=== PATIENT | male | born 1935 | race Hispanic/Latino ===

== ENCOUNTER 2018-06-27 09:13 | Emergency (ER) | payer OTHER ==
[~2018-06-27 09:13] MED LIST: DIAZ10TA4 PO; METO-408 PO; WARF6TAB49 PO
== END 2018-06-27 10:34 | disposition home or self-care (01) ==
LOC: EDH 09:13
DX: M54.16 Radiculopathy, lumbar region (principal); R03.0 Elevated blood-pressure reading, without diagnosis of hypertension

== ENCOUNTER → 2025-04-13 | Outpatient (CLI) | payer OTHER, MEDICARE ==
--- NOTE | 2025-04-14 06:23 | HMCIMG ---
EXAMINATION: ULTRASOUND OF THE RETROPERITONEUM. CLINICAL HISTORY: Gross hematuria. COMPARISON: None. TECHNIQUE: Real-time grayscale ultrasound images of the kidneys. FINDINGS: The kidneys are normal in caliber, the right kidney measures 10.4 x 5.4 x 5.3 cm and the left kidney measures 10.9 x 5.8 x 4.7 cm in its craniocaudal, AP, and transverse dimensions respectively. There is normal renal cortical thickness, and increased cortical echogenicity. There is no renal calculus or hydronephrosis. The urinary bladder is normal in caliber and wall thickness (cm). There are no calculi in the urinary bladder. Pre-void volume is 172 cc and post-void volume is 154 cc. The prostate gland is bulky in caliber and measures 5.0 x 3.7 x 4.5 cm with volume of 44 cc. IMPRESSION: Increased echotexture of both the kidneys, of concern for renal parenchymal disease. Recommend clinical correlation and with laboratory parameters. Mild prostatic hypertrophy. /[place]
== END | disposition home or self-care (01) ==
LOC: RAH 09:12
PROVIDERS: ATTEND Family Medicine
DX: N40.1 Benign prostatic hyperplasia with lower urinary tract symptoms (principal); R31.0 Gross hematuria
CPT/HCPCS: 76770

== ENCOUNTER 2025-07-26 09:32 | Inpatient (IN) | payer OTHER, MEDICARE ==
[~2025-07-26] VITALS: Ht 165.1 cm; Wt 62.9 kg
[2025-07-26 10:00] LABS: IMMATURE GRANULOCYTE ABSOLUTE 0.00 K/uL (0-1); NUCLEATED RED BLOOD CELLS 0.0 % (0.0-0.19); PLATELET COUNT (AUTO) 181 K/uL (130-400); RED BLOOD CELL COUNT(AUTO) 3.96 MIL/uL (4.50-6.20); RED CELL DISTRIBUTION WIDTH 14.6 % (11.0-15.5); WHITE BLOOD COUNT (AUTO) 5.7 K/uL (4.8-10.8)
[2025-07-26 10:11] LABS: CREATININE 1.0 mg/dL (0.5-1.3); GLOMERULAR FILTR. RATE CALC 72.0 mL/min (>90); GLUCOSE,RANDOM 135.0 mg/dL (70-105); SODIUM SERUM 136.0 mmol/L (136-145); UREA NITROGEN, BLOOD 23.0 mg/dL (7-18)
--- NOTE | 2025-07-26 10:12 | ERN ---
General Chief Complaint: Dehydration Stated Complaint: DEHYDRATION Time Seen by MD: 09:34 Source: patient History of Present Illness Initial Comments Patient is a an 89-year-old male coming in with generalized body weakness. Per EMS and facility where patient is a patient has not been eating well and has been presenting with a generalized body weakness. Allergies: Coded Allergies: No Known Allergies (Unverified Allergy, 01/29/12) No Known Drug Allergies (Unverified Allergy, 12/11/13) Home Meds Reported Medications Metoprolol Succinate (Metoprolol Succinate) 25 Mg Tab.er.24h, 25 MG PO HS, TAB 10/31/16 Diazepam (Diazepam) 10 Mg Tablet, 10 MG PO as needed, TAB 10/31/16 Warfarin Sodium (Warfarin Sodium) 6 Mg Tablet, 6 MG PO HS, TAB 10/31/16 Past Medical History Past Medical History: Other Medical History Other: VERTIGO, CHRONIC BACK PAIN Past Surgical History: Other Surgical History Other: PROSTATE SX ROS Dictation CONSTITUTIONAL: No chills, no fever, weakness, no diaphoresis, no malaise. HEAD/FACE: No signs of trauma. EENT: No eye pain, no blurred vision, no tearing, no double vision, no ear pain, no ear discharge, no nose pain, no nasal congestion, no throat pain, no throat swelling, no mouth pain. RESPIRATORY: No cough, no orthopnea, no SOB, no stridor, no wheezing. CARDIOVASCULAR: No chest pain, no edema, no palpitations, no syncope. GASTROINTESTINAL/ABDOMINAL: No abdominal pain, no constipation, no diarrhea, no nausea, no vomiting. GENITOURINARY: No abnormal discharge, no dysuria, no frequent urination, no hematuria. No complaints of pain in the genitals. MUSCULOSKELETAL: No back pain, no gout, no joint pain, no joint swelling, no muscle pain, no muscle stiffness, no neck pain. INTEGUMENTARY: No change in color, no change in hair/nails, no dryness, no lesion, no lumps, no rash. NEUROLOGICAL/PSYCH: No anxiety, not depressed, no emotional problem, no headache, no numbness, no pre-existing deficit, no history of seizures, no tremors, no weakness. HEMATOLOGIC/LYMPHATIC: Not anemic, no history of blood clots, no apparent bleeding, no bruising, glands not swollen. All Systems Negative, Except as Noted. Physical Exam Physical Exam Dictation VITAL SIGNS: Reviewed. GENERAL APPEARANCE: Alert, oriented x3, no acute distress, obese. HEAD AND FACE: Non-traumatic. EYES: PERRL, pink conjunctivas, eyelid no trauma, anterior chamber clear. EARS: Pinnas intact and no signs of trauma or erythema. Ear canals clear and no discharge. TMs no erythema. NOSE: No discharge, no bleeding. OROPHARYNX: Mouth normal, teeth no caries, tongue pink. Pharynx clear, no erythema. Tonsils no exudates, no abscesses noted. Mucous membrane moist. NECK: Supple, non-tender, no thyromegaly, no masses, no JVD, no bruits. BREAST: Deferred. CHEST: No tenderness, no crepitus, no paradoxical movement, no retractions. LUNGS: Clear, well-ventilated, symmetric, no rales, no wheezing, no rhonchi, no stridor, good breath sounds bilaterally. HEART: Regular rate, regular rhythm, no murmur, no gallops. VASCULAR: No peripheral edema. ABDOMEN: Soft, positive bowel sounds, nondistended, no guarding, nontender, no rebound, no masses no hepatomegaly, no splenomegaly, no Sabillon's sign, no hernias. RECTAL: Deferred. GENITAL: Deferred. NEUROLOGICAL: Normal speech, gross motor function intact, gross sensory function intact. MUSCULOSKELETAL: Neck nontender, full range of motion, back nontender, full range of motion. EXTREMITIES: Nontender, full range of motion. SKIN: Color pink, dry, no turgor, no rash, no lacerations, no abrasions, no contusions. LYMPHATICS: Deferred. Results Laboratory and Microbiology Lab and Micro Result Laboratory Tests Test 07/26/25 09:57 07/26/25 11:20 White Blood Count 5.7 K/uL (4.8-10.8) Red Blood Count 3.96 MIL/uL (4.50-6.20) L Hemoglobin 11.6 g/dL (14.0-18.0) L Hematocrit 34.0 % (42-54) L Mean Corpuscular Volume 85.9 fL (79-99) Mean Corpuscular Hemoglobin 29.3 pg (27.0-33.0) Mean Corpuscular Hemoglobin Concent 34.1 g/dL (32.0-36.0) Red Cell Distribution Width 14.6 % (11.0-15.5) Platelet Count 181 K/uL (130-400) Mean Platelet Volume 10.3 fL (7.5-10.5) Immature Granulocyte % (Auto) 0.0 % (0-1) Neutrophils (%) (Auto) 61.6 % (40.0-77.0) Lymphocytes (%) (Auto) 24.9 % (21.0-51.0) Monocytes (%) (Auto) 11.7 % (3.0-13.0) Eosinophils (%) (Auto) 1.4 % (0.0-8.0) Basophils (%) (Auto) 0.4 % (0.0-5.0) Neutrophils # (Auto) 3.5 K/uL (1.8-7.7) Lymphocytes # (Auto) 1.4 K/uL (1.0-4.8) Monocytes # (Auto) 0.7 K/uL (0.1-1.0) Eosinophils # (Auto) 0.08 K/uL (0.00-0.70) Basophils # (Auto) 0.02 K/uL (0.00-0.20) Absolute Immature Granulocyte (auto 0.00 K/uL (0-1) Nucleated Red Blood Cells 0.0 % (0.0-0.19) Activated Partial Thromboplast Time 33.3 SEC (26.3-35.5) Sodium Level 136 mmol/L (136-145) Potassium Level 3.7 mmol/L (3.5-5.1) Chloride Level 101 mmol/L (101-111) Carbon Dioxide Level 29 mmol/L (21-32) Blood Urea Nitrogen 23 mg/dL (7-18) H Creatinine 1.0 mg/dL (0.5-1.3) Glomerular Filtration Rate Calc 72 mL/min (>90) Random Glucose 135 mg/dL (70-105) H Total Calcium 8.6 mg/dL (8.5-10.1) Magnesium Level 1.90 mg/dL (1.80-2.40) Troponin I High Sensitivity 12 ng/L (4-75) Urine Color LIGHT-YELLOW (YELLOW) Urine Appearance CLEAR (CLEAR) Urine pH 6.0 (5.0-8.0) Urine Specific [place] 1.012 (1.001-1.031) Urine Protein NEGATIVE mg/dL (NEGATIVE) Urine Glucose (UA) NEGATIVE mg/dL (NEGATIVE) Urine Ketones NEGATIVE mg/dL (NEGATIVE) Urine Occult Blood NEGATIVE (NEGATIVE) Urine Nitrate NEGATIVE (NEGATIVE) Urine Bilirubin NEGATIVE mg/dL (NEGATIVE) Urine Urobilinogen 0.2 mg/dL (0.2-1.0) Urine Leukocyte Esterase NEGATIVE Ady/uL Labs Reviewed?: Yes EKG/XRAY/US/CT/MRI EKG Comment 07/26/2025 TIME 10:13 A.M. VENTRICULAR RATE 60 SINUS RHYTHM IN [address] WAVE ELEVATION OR DEPRESSION MDM MDM: Differential diagnosis: FAILURE TO THRIVE, DECREASED APPETITE, CHRONIC BACK PAIN, Rationale: Tests considered and ordered secondary to shared decision making include: Previous outside records reviewed: Old ER visits. Risk of complication and/or morbidity or mortality of patient management: None Medications-Per medication reconciliation Need for hospitalization: Patient does not meet criteria for hospitalization. Need for emergency major/minor surgery: No There are no social concerns with this patient. Prescription drug management Prescriptions will include symptomatic care Patient's prior external medical records from other ER visits were reviewed by me as indicated. Prior testing and results from previous visits were reviewed. Prior tests were taken into account with medical decision making and resource utilization, independent historian/historians were used to obtain complete medical history. I independently interpreted the test that were performed, results were reviewed by me and considered findings on radiology if ordered. Medical management and examination interpretation discussions were had by me with other qualified healthcare professionals as indicated for the patient's care. PATIENT WILL BE ADMITTED UNDER THE CARE OF [facility] FOR ONGOING MANAGEMENT. ED Course Orders Procedure Category Date Status Time Cbc With Differential LAB 07/26/25 Complete 09:49 Chest 1vw RAD 07/26/25 Resulted 09:49 12 Lead Ekg Tracing- EKG 07/26/25 Resulted Technical 09:49 Magnesium LAB 07/26/25 Complete 09:49 Troponin I High LAB 07/26/25 Complete Sensitivity 09:49 Urinalysis Profile LAB 07/26/25 Complete 09:49 Partial LAB 07/26/25 Complete Thromboplastin Time 09:49 Basic Metabolic Panel LAB 07/26/25 Complete 09:49 0.9%Nacl 1000ml (Ns PHA 07/26/25 Complete 1000ml) 12:30 Current Medications Medications (Trade) Dose Ordered Sig/Aj Route PRN Reason Start Time Stop Time Status Last Admin Dose Admin Sodium Chloride 1,000 ml @ 0 mls/hr ONCE ONCE IV 07/26/25 12:30 07/26/25 12:31 DC 07/26/25 12:25 Vital Signs Date Time Temp Pulse Resp B/P (MAP) Pulse Ox O2 Delivery O2 Flow Rate FiO2 07/26/25 10:41 97.9 62 14 151/68 97 Room Air* 0 21 07/26/25 09:46 98.2 70 16 135/69 98 Room Air 0 DX & DISP Disposition: Inpatient Decision to Admit Time: 13:09 Departure Impression: Primary Impression: Failure to thrive Additional Impressions: Decreased appetite, Chronic back pain Condition: Stable Referrals: ADI GONZALES MD (PCP) SANTOSH BETTENCOURT MD Jul 26, 2025 10:12
--- NOTE | 2025-07-26 10:21 | EKG ---
[facility] Test Date: 2025-07-26 Test Time: 10:13:38 Pat Name: SAMIR ABDULLAHI Department: ED Room: Gender: M [employer]: [facility] : 1935 Requested By: SANTOSH BETTENCOURT Order Number: [id number] Reading MD: Tata Manrique Measurements Intervals [place] Rate: 60 P: -5 HI: 296 QRS: -66 QRSD: 129 T: 75 QT: 430 QTc: 430 Interpretive Statements Sinus rhythm Prolonged HI interval Nonspecific IVCD with LAD Left ventricular hypertrophy ST elevation, consider inferior injury No previous ECG available for comparison Electronically Signed On 07-26-2025 12:10:57 CDT by Tata Manrique Please click the below link to view image of tracing.
--- NOTE | 2025-07-26 11:25 | HMCIMG ---
EXAM: CR Chest, 1 View. CLINICAL HISTORY: weakness COMPARISON: None provided. FINDINGS: LUNGS: There is no mass, infiltrate, or acute pulmonary abnormality. PLEURAL SPACES: No pleural effusion or pneumothorax. MEDIASTINUM: Cardiac size and mediastinal contours within normal limits. BONES: No aggressive appearing osseous lesion seen. IMPRESSION: No acute cardiopulmonary pathology is evident. /[place]
[2025-07-26 11:38] LABS: APPEARANCE,URINE CLEAR (CLEAR); GLUCOSE, URINE (UA) NEGATIVE (NEGATIVE); LEUKOCYTE ESTERASE ,URINE NEGATIVE Leu/uL (NEGATIVE); NITRATE,URINE NEGATIVE (NEGATIVE); OCCULT BLOOD,URINE NEGATIVE (NEGATIVE)
[2025-07-26 11:39] LABS: ADD UA MICROSCOPIC NO
[2025-07-26] MEDS: 0.9%NACL 1000ML 1,000 ML IV ONE (12:25)
[2025-07-26] MEDS: LACTATED RINGERS 1000ML 1,000 ML IV SCH (13:43)
[2025-07-26] MEDS ORDERED: RIVA20TA PO (15:11)
[2025-07-26] MEDS ORDERED: TAMS-55 PO (15:11)
[2025-07-26 15:49] LABS: COVID19 (SARS ANTIGEN RAPID) PRESUMPTIVE NEGATIVE (NEGATIVE); INFLUENZA TYPE A Negative For Type A (NEGATIVE); INFLUENZA TYPE B Negative For Type B (NEGATIVE)
--- NOTE | 2025-07-26 16:22 | HP ---
[facility] HISTORY & PHYSICAL Date Patient Seen: Jul 26, 2025 Time of Visit: 16:20 Supervising Physician: Dr. Moulton Primary Care Physician: Dr. Scott Lu Outpatient Specialists: [ ] Inpatient Consults: [ ] PROBLEM LIST: Adult Failure to Thrive BPH Lumbar pain Hypertension Suspected carotid stenosis, on xarelto (on hold, on lovenox) HPI: Patient is an 89-year-old male who arrived to the ED via EMS from a SNF facility where he is a long-term resident. He has a past medical history significant for BPH, hypertension, presenting today after his SNF facility as stated he has not been eating well. On admission patient appears to be severely dehydrated, he has been started on fluid resuscitation. Patient is cachectic, but pleasant, willing to participate and physical exam and evaluation. Daughter and son at bedside. Patient appears not to think that he has not been eating enough, however he that he has very little appetite. He states that he feels hungry in his belly however he has no desire to consume food. Patient endorses prostate problems for which he takes tamsulosin, as well as lumbar pain. He states his lumbar pain is chronic, denies any recent falls or possibilities of fracture. Given the patient's slight abdominal distention and possibility of silent compression fracture we will order CT abdomen. Per son at bedside narcotic analgesia makes the patient extremely somnolent and obtunded. Patient's renal function will be monitored and we will initiate ketorolac for pain relief at this time. Hydralazine 25 PRN q.6 hours added for hypertension. Advised patient we will continue with fluid resuscitation overnight and re-evaluate labs in the morning. Patient states he is willing to cooperate to try to correct his recent decrease in appetite. Patient will be started on a regular diet. Bria marcelino pending a room on the med floor. Plan Continue IV fluid hydration Pending CT abdomen for evaluation of abdominal distention as well as lumbar pain Hydralazine 25 PRN q.6 hours for hypertension above 160 Patient initiated on Lovenox, hold Xarelto until procedures are ruled out Ketorolac 15 PRN q.6 hours for pain Monitor patient's oral food intake PAST MEDICAL HX: see above PAST SURGICAL HX: noncontributory SOCIAL HISTORY: No tobacco, ETOH, or illicit drug use Coded Allergies: No Known Allergies (Unverified Allergy, 01/29/12) No Known Drug Allergies (Unverified Allergy, 12/11/13) REVIEW OF SYSTEMS: 12 point ROS reviewed with patient. Pertinent positives mentioned above. Otherwise negative. PHYSICAL EXAM: GENERAL: alert, weak, awake oriented x 3 HEENT: EOMI, Sclera non icteric, moist mucosa NECK: Supple, no JVD, trachea midline LUNGS: Clear breath sounds bilaterally. No wheezes HEART: Regular rate and rhythm. Normal S1 and S2, without murmurs ABD: Abdomen soft, nontender. Bowel sounds present EXT: No clubbing cyanosis or edema NEURO: Alert and oriented to person, follows commands Vital Signs (last 8hr) Date Time Temp Pulse Resp B/P (MAP) Pulse Ox O2 Delivery O2 Flow Rate FiO2 07/26/25 16:13 97.9 71 19 176/77 99 Room Air* 0 21 07/26/25 13:37 97.5 58 12 163/63 99 Room Air* 0 21 07/26/25 10:41 97.9 62 14 151/68 97 Room Air* 0 21 07/26/25 09:46 98.2 70 16 135/69 98 Room Air 0 LABS: Hematology Labs: Test 07/26/25 09:57 Range/Units White Blood Count 5.7 4.8-10.8 K/uL Red Blood Count 3.96 L 4.50-6.20 MIL/uL Hemoglobin 11.6 L 14.0-18.0 g/dL Hematocrit 34.0 L 42-54 % Mean Corpuscular Volume 85.9 79-99 fL Mean Corpuscular Hemoglobin 29.3 27.0-33.0 pg Mean Corpuscular Hemoglobin Concent 34.1 32.0-36.0 g/dL Red Cell Distribution Width 14.6 11.0-15.5 % Platelet Count 181 130-400 K/uL Mean Platelet Volume 10.3 7.5-10.5 fL Immature Granulocyte % (Auto) 0.0 0-1 % Neutrophils (%) (Auto) 61.6 40.0-77.0 % Lymphocytes (%) (Auto) 24.9 21.0-51.0 % Monocytes (%) (Auto) 11.7 3.0-13.0 % Eosinophils (%) (Auto) 1.4 0.0-8.0 % Basophils (%) (Auto) 0.4 0.0-5.0 % Neutrophils # (Auto) 3.5 1.8-7.7 K/uL Lymphocytes # (Auto) 1.4 1.0-4.8 K/uL Monocytes # (Auto) 0.7 0.1-1.0 K/uL Eosinophils # (Auto) 0.08 0.00-0.70 K/uL Basophils # (Auto) 0.02 0.00-0.20 K/uL Absolute Immature Granulocyte (auto 0.00 0-1 K/uL Nucleated Red Blood Cells 0.0 0.0-0.19 % Chemistry Labs: Test 07/26/25 09:57 Range/Units Sodium Level 136 136-145 mmol/L Potassium Level 3.7 3.5-5.1 mmol/L Chloride Level 101 101-111 mmol/L Carbon Dioxide Level 29 21-32 mmol/L Blood Urea Nitrogen 23 H 7-18 mg/dL Creatinine 1.0 0.5-1.3 mg/dL Glomerular Filtration Rate Calc 72 >90 mL/min Random Glucose 135 H 70-105 mg/dL Total Calcium 8.6 8.5-10.1 mg/dL Magnesium Level 1.90 1.80-2.40 mg/dL Troponin I High Sensitivity 12 4-75 ng/L Coagulation Labs: Test 07/26/25 09:57 Range/Units Activated Partial Thromboplast Time 33.3 26.3-35.5 SEC DIAGNOSTICS / RADIOLOGY RESULTS: [ ] PLAN NEURO: Minimize central acting medications as possible. Maintain fall precautions, adequate lighting during the day PULMONARY: Supplemental 02 as needed. Maintain aspiration precautions at all times CARDIOVASCULAR: Follow hemodynamics. Vital signs per facility protocol GI & NUTRITION: Continue with nutritional support. Continue stool softeners and laxatives as needed. KIDNEYS & ELECTROLYTES: Strict monitoring of intake, output and overall fluid balance. Avoid nephrotoxic medications to the extent possible. Medications to be dosed according to renal function. Monitor electrolytes and replace as needed ENDOCRINE: Maintain blood glucose between 100-180 at all times. Hypoglycemia protocol in place INFECTIOUS DISEASE: Trend temperature, WBC and procalcitonin level Follow cultures, deescalate antibiotics as soon as possible. Panculture if new onset fever ONCOLOGY/HEMATOLOGY/COAGULATION: Monitor for s/s of bleeding Monitor hemoglobin, coagulation studies as needed SKIN: Pressure ulcer prevention per facility protocol Specialty mattress ORTHO/REHAB: Continue PT/OT Prophylaxis: Continue GI and DVT prophylaxis Code Status: Full Resuscitation Disposition: TBD Other: Total patient care time exceeds 35 minutes excluding all procedures. SCOTT ANSARI PAC Jul 26, 2025 16:22
--- NOTE | 2025-07-26 17:12 | NUR ---
DCP: HOME Sw met with pt and his son Bakari Son [phone]. P lives at home alone, is independent of all his ADLS and home management reports son. Pt has a Walker with seat and shower chair. No HH or HD services. PCP is Rodolfo Lu and uses [facility] needs. Son states pt will dc home Addendum: 07/26/25 at 1714 by ADAMARIS DE PAZ Amended: Links added.
--- NOTE | 2025-07-26 21:40 | NUR ---
REPORT GIVEN TO NURSE CRNESHAW
[2025-07-27] VITALS (7 sets, daily range): BP systolic 134–164; BP diastolic 64–90; PULSE 70–84; RESP 14–18; TEMP 97.7–98.8; O2SAT 97
[2025-07-27 06:11] LABS: IMMATURE GRANULOCYTE ABSOLUTE 0.01 K/uL (0-1); NUCLEATED RED BLOOD CELLS 0.0 % (0.0-0.19); PLATELET COUNT (AUTO) 191 K/uL (130-400); RED BLOOD CELL COUNT(AUTO) 3.90 MIL/uL (4.50-6.20); RED CELL DISTRIBUTION WIDTH 14.4 % (11.0-15.5); WHITE BLOOD COUNT (AUTO) 5.9 K/uL (4.8-10.8)
[2025-07-27 06:44] LABS: ASPARTATE AMINOTRANSFERASE 19.0 U/L (10-37); CREATININE 0.8 mg/dL (0.5-1.3); GLOMERULAR FILTR. RATE CALC 85.0 mL/min (>90); GLUCOSE,RANDOM 104.0 mg/dL (70-105); SODIUM SERUM 140.0 mmol/L (136-145); TOTAL PROTEIN, SERUM 6.1 g/dL (6.0-8.3); UREA NITROGEN, BLOOD 16.0 mg/dL (7-18)
[2025-07-27] MEDS: ENOXAPARIN SODIUM 40 MG/0.4 ML SYRINGE SQ SCH (08:06)
--- NOTE | 2025-07-27 11:49 | NUR ---
Nutritional Note: Chart, meds, and labs Reviewed. Pt reported that he feels hungry in his belly however he has no desire to consume food. Met with pt and son at bedside. Pt denied any problems chewing/swallowing. States that he wants to eat but loses interest because of pain in his shoulder and back. Pt reported UBW 178# and wt loss in the last 5-6months due to decreased intake. RD discussed with pt the importance of proper nutrition, increasing PO intake, and supplementing with PO supplement and if PO intake was not meeting needs the alternative wound be possible PEG placement to meet needs. Pt agreed to appetite stimulant and supplementing meals with [place] PO supplement. Recommend: -Appropriate Appetite stimulant -Nephrovite MVI combination of B vitamins may be used to treat or prevent vitamin deficiency due to poor diet. -Magic Cup 4oz w/ PM tray: Provides 9gm pro/ 290kcal and 20 vitamins and minerals. [place] to serve with meals as a means of adding calories and protein for unintended weight loss. -ProStat BID (30 ml) JELLO - Electrolyte replacements per protocol -Monitor feeding tolerance, %, wt, and labs -Document PO intake and wt daily. -If No BM >3days consider bowel stimulant. -Consider appetite stimulant if intake remains <75%for 3 days. -Schedule outpatient RD f/u for long-term nutrition care. - Notify RD if additional nutrition concerns arise. SEE RD Nutritional Assessment for additional assessment information. Addendum: 07/27/25 at [address] Amended: Links added.
[2025-07-27] MEDS: LIDOCAINE 4% ADH..PATCH TP SCH (11:54)
--- NOTE | 2025-07-27 14:01 | PN ---
[facility] PROGRESS NOTE Date Patient Seen: Jul 27, 2025 Time of Visit: 11:00 Supervising Physician: Dr. Tyler Moulton Primary Care Physician: Dr. Scott Lu Inpatient Consults: NA PROBLEM LIST: Acute intractable pain to left hip area Anorexia due to intractable pain Acute dehydration on admission Adult Failure to Thrive Unintentional weight loss BPH Lumbar pain Hypertension Suspected carotid stenosis, on xarelto (on hold, on lovenox) INTERVAL HISTORY: Patient evaluated at bedside today. Son at bedside. Patient is awake, alert, and oriented. At this time he states he has some pain to the lower left side of his back from 0-10 his pain is at a 3. He states he has had this pain for a long time but more severe within this month. He was seeing pain management Dr. Prieto for his pain. His son believes it is sciatic pain. He states his pain is so bad that he can not even eat. At home he was taking Hydrocodone which was prescribed by his PCP Scott Lu. He says that medication does help. He also take Tylenol as needed. Today orders placed for CT abdomen / pelvis due to his decrease in appetite states he feels tingling in his abdomen when the pain to his back starts and CT thoracic lumbar to make sure there is no fractures or abnormal findings. Will also order a lidocaine patch to help with pain. Bedside nurse reports patient has decreased appetite and case management would like to have a swallow study done. Denies any swallowing issues. States he is hungry right now. After evaluating and assessing patient no swallow study is needed. Denies any chest pain, abdominal pain, nausea or vomiting. REVIEW OF SYSTEMS: 12 point ROS reviewed with patient. Pertinent positives mentioned above. Otherwise negative. PHYSICAL EXAM: GENERAL: alert, weak, awake oriented x 3 HEENT: EOMI, Sclera non icteric, moist mucosa NECK: Supple, no JVD, trachea midline LUNGS: Clear breath sounds bilaterally. No wheezes HEART: Regular rate and rhythm. Normal S1 and S2, without murmurs ABD: Abdomen soft, nontender. Bowel sounds present EXT: No clubbing cyanosis or edema NEURO: Alert and oriented to person, follows commands Vital Signs (last 8hr) Date Time Temp Pulse Resp B/P (MAP) Pulse Ox O2 Delivery O2 Flow Rate FiO2 07/27/25 12:00 98.8 83 18 149/83 97 Room Air 07/27/25 09:00 Room Air* 0 21 07/27/25 08:00 98.2 70 18 134/64 98 Room Air LABS: Hematology Labs: Test 07/27/25 05:40 Range/Units White Blood Count 5.9 4.8-10.8 K/uL Red Blood Count 3.90 L 4.50-6.20 MIL/uL Hemoglobin 11.3 L 14.0-18.0 g/dL Hematocrit 32.8 L 42-54 % Mean Corpuscular Volume 84.1 79-99 fL Mean Corpuscular Hemoglobin 29.0 27.0-33.0 pg Mean Corpuscular Hemoglobin Concent 34.5 32.0-36.0 g/dL Red Cell Distribution Width 14.4 11.0-15.5 % Platelet Count 191 130-400 K/uL Mean Platelet Volume 11.3 H 7.5-10.5 fL Immature Granulocyte % (Auto) 0.2 0-1 % Neutrophils (%) (Auto) 60.9 40.0-77.0 % Lymphocytes (%) (Auto) 25.5 21.0-51.0 % Monocytes (%) (Auto) 11.3 3.0-13.0 % Eosinophils (%) (Auto) 1.9 0.0-8.0 % Basophils (%) (Auto) 0.2 0.0-5.0 % Neutrophils # (Auto) 3.6 1.8-7.7 K/uL Lymphocytes # (Auto) 1.5 1.0-4.8 K/uL Monocytes # (Auto) 0.7 0.1-1.0 K/uL Eosinophils # (Auto) 0.11 0.00-0.70 K/uL Basophils # (Auto) 0.01 0.00-0.20 K/uL Absolute Immature Granulocyte (auto 0.01 0-1 K/uL Nucleated Red Blood Cells 0.0 0.0-0.19 % Chemistry Labs: Test 07/27/25 05:40 07/26/25 09:57 Range/Units Sodium Level 140 136-145 mmol/L Potassium Level 3.8 3.5-5.1 mmol/L Chloride Level 105 101-111 mmol/L Carbon Dioxide Level 22 21-32 mmol/L Blood Urea Nitrogen 16 7-18 mg/dL Creatinine 0.8 0.5-1.3 mg/dL Glomerular Filtration Rate Calc 85 >90 mL/min Random Glucose 104 70-105 mg/dL Uric Acid 5.3 2.6-7.2 mg/dL Total Calcium 8.6 8.5-10.1 mg/dL Magnesium Level 1.90 1.80-2.40 mg/dL Total Bilirubin 0.8 0.2-1.0 mg/dL Aspartate Amino Transf (AST/SGOT) 19 10-37 U/L Alanine Aminotransferase (ALT/SGPT) 16 12-78 U/L Alkaline Phosphatase 82 50-136 U/L Total Protein 6.1 6.0-8.3 g/dL Albumin 3.1 L 3.5-5.0 g/dL Troponin I High Sensitivity 12 4-75 ng/L Coagulation Labs: Test 07/26/25 09:57 Range/Units Activated Partial Thromboplast Time 33.3 26.3-35.5 SEC DIAGNOSTICS / RADIOLOGY RESULTS:n/a n/a PLAN Continue with IV fluids Pending CT Abdomen / Pelvis Pending CT Thoracic Lumbar Continue with pain control Continue to monitor oral food intake NEURO: Minimize central acting medications as possible. Maintain fall precautions, adequate lighting during the day PULMONARY: Supplemental 02 as needed. Maintain aspiration precautions at all times CARDIOVASCULAR: Follow hemodynamics. Vital signs per facility protocol GI & NUTRITION: Continue with nutritional support. Continue stool softeners and laxatives as needed. KIDNEYS & ELECTROLYTES: Strict monitoring of intake, output and overall fluid balance. Avoid nephrotoxic medications to the extent possible. Medications to be dosed according to renal function. Monitor electrolytes and replace as needed ENDOCRINE: Maintain blood glucose between 100-180 at all times. Hypoglycemia protocol in place INFECTIOUS DISEASE: Trend temperature, WBC and procalcitonin level Follow cultures, deescalate antibiotics as soon as possible. Panculture if new onset fever ONCOLOGY/HEMATOLOGY/COAGULATION: Monitor for s/s of bleeding Monitor hemoglobin, coagulation studies as needed SKIN: Pressure ulcer prevention per facility protocol Specialty mattress ORTHO/REHAB: Continue PT/OT Prophylaxis: Continue GI and DVT prophylaxis Code Status: Full Resuscitation Disposition: OSMINTAMARA GOMEZ Y [employer] Jul 27, 2025 14:01
--- NOTE | 2025-07-27 14:22 | HMCIMG ---
CT ABDOMEN AND PELVIS WITHOUT IV CONTRAST CLINICAL HISTORY: Abdominal distention, lumbar pain TECHNIQUE: Axial computed tomography images of the abdomen and pelvis obtained without intravenous contrast. CONTRAST: None. COMPARISON: None provided. FINDINGS: LUNG BASES: Mild bilateral pleural effusions with associated bibasilar atelectasis. Trace pericardial effusion noted. LIVER: A hypodense area measuring approximately 1.5 cm is seen in the right hepatic lobe???indeterminate in noncontrast study. Recommend follow-up ultrasound or contrast-enhanced CT/MRI for further characterization. Tiny calcified hepatic focus also noted. GALLBLADDER AND BILIARY TREE: Gallbladder appears normal. No radiopaque calculi or biliary ductal dilatation. PANCREAS: Atrophic. No peripancreatic inflammation or collection. SPLEEN: Unremarkable. ADRENAL GLANDS: Unremarkable. KIDNEYS, URETERS, AND BLADDER: Bilateral renal cortical atrophy with diffuse perinephric fatty stranding, suggestive of chronic medical renal disease. No hydronephrosis or urinary calculi. Urinary bladder appears within normal limits. STOMACH AND BOWEL: Multiple colonic diverticulosis noted, some calcified, without evidence of diverticulitis. No bowel obstruction or wall thickening. APPENDIX: Normal. No CT evidence of appendicitis. PERITONEUM: No free air or free fluid. LYMPH NODES: No lymphadenopathy. REPRODUCTIVE ORGANS: Prostate gland is enlarged, measuring approximately 4.0 x 4.9 x 4.6 cm (volume ? 47 mL), with a small calcification. Median lobe projects into the bladder base by approximately 1.1 cm. Seminal vesicles unremarkable. VASCULATURE: Calcified atherosclerotic changes involving the intra-abdominal aorta, abdominal branches, and bilateral iliac and pelvic vessels. No aneurysm.Small fat-containing left inguinal hernia. BONES: Degenerative changes of the lumbar spine with mild scoliosis, multilevel disc space narrowing, and vacuum phenomenon. No acute osseous abnormality. IMPRESSION: Hypodense lesion (1.5 cm) in the right hepatic lobe ??? indeterminate; recommend ultrasound or contrast-enhanced imaging for further evaluation. Bilateral renal cortical atrophy with perinephric fat stranding ??? consistent with chronic medical renal disease. Prostatic enlargement (volume 47 mL) with median lobe indentation on bladder base. /[place]
--- NOTE | 2025-07-27 20:19 | HMCIMG ---
EXAM: COMPUTED TOMOGRAPHY OF THE THORACIC SPINE WITHOUT INTRAVENOUS CONTRAST Technique: Axial computed tomography of the thoracic spine was performed without intravenous contrast with sagittal and coronal reformations. Radiation dose reduction techniques were utilized (automatic exposure control with size-based milliampere and kilovolt adjustments and iterative reconstruction). Study limited by the absence of intravenous contrast, which reduces sensitivity for enhancement-dependent pathology, and by intrinsic limitations of computed tomography for detailed evaluation of the spinal cord and nerve roots compared with magnetic resonance imaging. Contrast: No intravenous contrast administered. Clinical Information: Back pain. Findings: Alignment: Normal thoracic vertebral alignment without anterolisthesis or retrolisthesis. Vertebral bodies: Diffuse osteopenic appearance. Subchondral cystic changes are present involving the T6, T7, T8, and T10 vertebral bodies. No acute compression fracture identified. Intervertebral discs: Multilevel disc height reduction throughout the thoracic spine. Endplates and osteophytes: Multilevel endplate osteophytic spurring consistent with spondylosis. Facet joints: Multilevel facet joint arthropathy. Spinal canal and neural foramina: No high-grade osseous canal stenosis is apparent on computed tomography; evaluation for soft tissue encroachment is limited on noncontrast computed tomography. Paraspinal soft tissues: No paraspinal fluid collection or mass detected. Vasculature: Moderate aortic atherosclerotic calcifications noted along the visualized thoracic aorta. Ribs and chest wall: No acute osseous abnormality identified within the imaged thorax. Impression: 1. Multilevel thoracic spondylosis characterized by disc height loss, endplate osteophytes, and multilevel facet arthropathy. 2. Osteopenic bones with subchondral cystic changes at T6, T7, T8, and T10. 3. Moderate aortic atherosclerotic calcifications. 4. Recommendation: Correlate the multilevel degenerative changes with the clinical level of pain. If there are radicular symptoms, myelopathy signs, or persistent pain disproportionate to radiographic findings, obtain magnetic resonance imaging of the thoracic spine without and with intravenous contrast for evaluation of the spinal cord, nerve roots, and soft tissues. Consider bone mineral density testing in the setting of osteopenia and institute bone health optimization per guidelines. /[place]
--- NOTE | 2025-07-27 20:52 | HMCIMG ---
EXAM: COMPUTED TOMOGRAPHY OF THE LUMBAR SPINE WITHOUT INTRAVENOUS CONTRAST Technique: Axial computed tomography of the lumbar spine was performed without intravenous contrast with sagittal and coronal reformations. Dose reduction techniques were applied according to ???as low as reasonably achievable??? principles. Study sensitivity is limited for evaluation of intervertebral discs, ligaments, and nerve roots compared with magnetic resonance imaging. Contrast: No intravenous contrast administered. Clinical Information: Back pain. Comparison: None. Findings: Vertebral bodies: Lumbar vertebral body heights from L1 through S1 are maintained without fracture or destructive lytic or sclerotic lesion. Multilevel anterior and marginal osteophytes are present. Mild scoliosis is noted. Posterior elements: Facets, laminae, and pedicles are intact without acute osseous abnormality. Paraspinal musculature: Psoas and erector spinae muscles are normal in bulk and attenuation. Sacroiliac joints: Joint space narrowing compatible with degenerative change. Aorta: Aortic atherosclerotic calcifications are present in the visualized segments. Colon (limited views): Prominent stool burden compatible with constipation on the imaged portions. Syjeq-iw-[id number] assessment: L1???L2: Disc height reduction with intradiscal vacuum phenomenon. Diffuse circumferential disc bulge with severe bilateral neural foraminal stenosis. No osseous central canal stenosis. Facet arthropathy present. L2???L3: Diffuse circumferential disc bulge with severe bilateral neural foraminal stenosis. Mild central canal stenosis. Facet joint hypertrophy present. L3???L4: Disc height reduction with diffuse circumferential disc bulge producing severe bilateral neural foraminal stenosis. No osseous central canal stenosis. Facet arthropathy present. L4???L5: Disc height reduction with intradiscal vacuum phenomenon and diffuse circumferential disc bulge causing severe bilateral neural foraminal stenosis. No osseous central canal stenosis. Facet arthropathy present. L5???S1: No focal disc herniation. No central canal stenosis or neural foraminal stenosis. Facet arthropathy present. Impression: 1. Multilevel lumbar spondylosis with diffuse disc bulges and facet arthropathy causing severe bilateral neural foraminal stenosis at L1???L2, L2???L3, L3???L4, and L4???L5; mild central canal stenosis at L2???L3. 2. Intradiscal vacuum phenomena at L1???L2 and L4???L5, consistent with advanced disc degeneration. 3. Degenerative sacroiliitis with sacroiliac joint space narrowing. 4. Aortic atherosclerosis. 5. Prominent colonic stool burden compatible with constipation on this limited study. 6. Correlate severe multilevel foraminal stenoses with radicular symptoms and neurologic examination findings. Magnetic resonance imaging of the lumbar spine without and with contrast is recommended for definitive assessment of the neural elements and to evaluate for non-osseous contributors to stenosis. /[place]
[2025-07-28] VITALS (7 sets, daily range): BP systolic 136–172; BP diastolic 64–83; PULSE 67–82; RESP 16–18; TEMP 97.4–98.1; O2SAT 97–98
[2025-07-28 04:59] LABS: IMMATURE GRANULOCYTE ABSOLUTE 0.02 K/uL (0-1); NUCLEATED RED BLOOD CELLS 0.0 % (0.0-0.19); PLATELET COUNT (AUTO) 174 K/uL (130-400); RED BLOOD CELL COUNT(AUTO) 3.66 MIL/uL (4.50-6.20); RED CELL DISTRIBUTION WIDTH 14.6 % (11.0-15.5); WHITE BLOOD COUNT (AUTO) 6.2 K/uL (4.8-10.8)
[2025-07-28 05:22] LABS: ASPARTATE AMINOTRANSFERASE 18.0 U/L (10-37); CREATININE 0.9 mg/dL (0.5-1.3); GLOMERULAR FILTR. RATE CALC 82.0 mL/min (>90); GLUCOSE,RANDOM 126.0 mg/dL (70-105); SODIUM SERUM 140.0 mmol/L (136-145); TOTAL PROTEIN, SERUM 5.6 g/dL (6.0-8.3); UREA NITROGEN, BLOOD 23.0 mg/dL (7-18)
[2025-07-28] MEDS: Vitamin B Complex/Vit C/Folic Acid PO SCH (08:43)
[2025-07-28] MEDS: MULTIVITAMIN TABLET PO SCH (08:43)
[2025-07-28] MEDS: SENNOSIDES 8.6 MG TABLET PO SCH (10:29)
--- NOTE | 2025-07-28 11:12 | PN ---
[facility] PROGRESS NOTE Date Patient Seen: Jul 28, 2025 Time of Visit: 11:01 Supervising Physician: Dr. Tyler Moulton Primary Care Physician: Dr. Scott Lu Inpatient Consults: NA PROBLEM LIST: Acute intractable pain to left hip area Anorexia due to intractable pain Acute dehydration on admission Hypodense lesion (1.5 cm) in the right hepatic lobe Multilevel lumbar spondylosis with diffuse disc bulges and facet arthropathy Adult Failure to Thrive Unintentional weight loss BPH Lumbar pain Hypertension Suspected carotid stenosis, on xarelto (on hold, on lovenox) INTERVAL HISTORY: Patient evaluated at bedside today. Son at bedside. Patient is awake, alert, and oriented. At this time he denies pain to his back. States he feels constipated, informed patient stool softeners have been ordered. Son reports patient ate much better yesterday. Patient and son updated on CT reports. Lumbar area has multilevel lumbar spondylosis with diffuse disc bulges and facet arthropathy MRI has been ordered for further evaluation. Patient states he would not go through surgery if he needed one. However, he is open to other interventions. CT Abdomen liver has a hypodense area measuring approximately 1.5 cm. An US of liver has been ordered. Bedside nurse reports no acute findings. Denies any chest pain, abdominal pain, nausea or vomiting. REVIEW OF SYSTEMS: 12 point ROS reviewed with patient. Pertinent positives mentioned above. Otherwise negative. PHYSICAL EXAM: GENERAL: alert, weak, awake oriented x 3 HEENT: EOMI, Sclera non icteric, moist mucosa NECK: Supple, no JVD, trachea midline LUNGS: Clear breath sounds bilaterally. No wheezes HEART: Regular rate and rhythm. Normal S1 and S2, without murmurs ABD: Abdomen soft, nontender. Bowel sounds present EXT: No clubbing cyanosis or edema NEURO: Alert and oriented to person, follows commands Vital Signs (last 8hr) Date Time Temp Pulse Resp B/P (MAP) Pulse Ox O2 Delivery O2 Flow Rate FiO2 07/28/25 07:49 98.1 82 18 156/79 98 Room Air 07/28/25 04:00 98.1 74 18 136/64 96 Room Air LABS: Hematology Labs: Test 07/28/25 04:27 Range/Units White Blood Count 6.2 4.8-10.8 K/uL Red Blood Count 3.66 L 4.50-6.20 MIL/uL Hemoglobin 10.6 L 14.0-18.0 g/dL Hematocrit 32.4 L 42-54 % Mean Corpuscular Volume 88.5 79-99 fL Mean Corpuscular Hemoglobin 29.0 27.0-33.0 pg Mean Corpuscular Hemoglobin Concent 32.7 32.0-36.0 g/dL Red Cell Distribution Width 14.6 11.0-15.5 % Platelet Count 174 130-400 K/uL Mean Platelet Volume 11.4 H 7.5-10.5 fL Immature Granulocyte % (Auto) 0.3 0-1 % Neutrophils (%) (Auto) 63.0 40.0-77.0 % Lymphocytes (%) (Auto) 23.5 21.0-51.0 % Monocytes (%) (Auto) 10.9 3.0-13.0 % Eosinophils (%) (Auto) 1.8 0.0-8.0 % Basophils (%) (Auto) 0.5 0.0-5.0 % Neutrophils # (Auto) 3.9 1.8-7.7 K/uL Lymphocytes # (Auto) 1.5 1.0-4.8 K/uL Monocytes # (Auto) 0.7 0.1-1.0 K/uL Eosinophils # (Auto) 0.11 0.00-0.70 K/uL Basophils # (Auto) 0.03 0.00-0.20 K/uL Absolute Immature Granulocyte (auto 0.02 0-1 K/uL Nucleated Red Blood Cells 0.0 0.0-0.19 % Chemistry Labs: Test 07/28/25 04:27 07/27/25 05:40 Range/Units Sodium Level 140 136-145 mmol/L Potassium Level 3.8 3.5-5.1 mmol/L Chloride Level 105 101-111 mmol/L Carbon Dioxide Level 25 21-32 mmol/L Blood Urea Nitrogen 23 H 7-18 mg/dL Creatinine 0.9 0.5-1.3 mg/dL Glomerular Filtration Rate Calc 82 >90 mL/min Random Glucose 126 H 70-105 mg/dL Total Calcium 8.1 L 8.5-10.1 mg/dL Magnesium Level 1.80 1.80-2.40 mg/dL Total Bilirubin 0.5 # 0.2-1.0 mg/dL Aspartate Amino Transf (AST/SGOT) 18 10-37 U/L Alanine Aminotransferase (ALT/SGPT) 17 12-78 U/L Alkaline Phosphatase 77 50-136 U/L Total Protein 5.6 L 6.0-8.3 g/dL Albumin 2.7 L 3.5-5.0 g/dL Uric Acid 5.3 2.6-7.2 mg/dL DIAGNOSTICS / RADIOLOGY RESULTS: n/a PLAN Continue with IV fluids Pending US Liver Pending MRI Thoracic Lumbar Continue with pain control Continue to monitor oral food intake NEURO: Minimize central acting medications as possible. Maintain fall precautions, adequate lighting during the day PULMONARY: Supplemental 02 as needed. Maintain aspiration precautions at all times CARDIOVASCULAR: Follow hemodynamics. Vital signs per facility protocol GI & NUTRITION: Continue with nutritional support. Continue stool softeners and laxatives as needed. KIDNEYS & ELECTROLYTES: Strict monitoring of intake, output and overall fluid balance. Avoid nephrotoxic medications to the extent possible. Medications to be dosed according to renal function. Monitor electrolytes and replace as needed ENDOCRINE: Maintain blood glucose between 100-180 at all times. Hypoglycemia protocol in place INFECTIOUS DISEASE: Trend temperature, WBC and procalcitonin level Follow cultures, deescalate antibiotics as soon as possible. Panculture if new onset fever ONCOLOGY/HEMATOLOGY/COAGULATION: Monitor for s/s of bleeding Monitor hemoglobin, coagulation studies as needed SKIN: Pressure ulcer prevention per facility protocol Specialty mattress ORTHO/REHAB: Continue PT/OT Prophylaxis: Continue GI and DVT prophylaxis Code Status: Full Resuscitation Disposition: TETE PRASADTAMARA Y ALEXIS Jul 28, 2025 11:12
--- NOTE | 2025-07-28 15:26 | HMCIMG ---
EXAM: MR Thoracic Spine Without IV contrast. CLINICAL HISTORY: assess for compression, intractable left lumbar pain TECHNIQUE: Magnetic resonance images of the thoracic spine without intravenous contrast in multiple planes. Series acquired: 2 - COR T2 LOC SSFSE - TR: 800.1 - TE: 74.3 - ET: 1.0 - Thk: 5.0 7 - SAG T2 FRFSE - TR: 4052.0 - TE: 121.7 - ET: 23.0 - Thk: 4.0 8 - SAG T1 FSE (FS) - TR: 546.0 - TE: 17.1 - ET: 5.0 - Thk: 4.0 9 - SAG STIR - TR: 5141.0 - TE: 37.8 - ET: 15.0 - Thk: 4.0 10 - AX T2 FRFSE - TR: 4499.0 - TE: 111.2 - ET: 20.0 - Thk: 4.0 400 - PASTED IMAGES - TE: 105.4 - ET: 21.0 - Thk: 5.0 CONTRAST: None. COMPARISON: None provided. FINDINGS: SPINAL CORD: Normal cord signal and contour. VERTEBRAE: No acute fracture or aggressive appearing osseous lesion. ALIGNMENT: Bony alignment is anatomic. DEGENERATIVE CHANGES: Multilevel disc height reduction throughout the thoracic spine. Multilevel endplate osteophytic spurring consistent with spondylosis. Multilevel facet joint arthropathy. No spinal canal or foraminal stenosis. PARASPINAL SOFT TISSUES: Unremarkable. IMPRESSION: 1. No acute thoracic spine findings. /[place]
--- NOTE | 2025-07-28 15:27 | HMCIMG ---
EXAM: MR Lumbar Spine Without Intravenous Contrast. CLINICAL HISTORY: lumbar spinal compression TECHNIQUE: Magnetic resonance images of the lumbar spine without intravenous contrast in multiple planes. CONTRAST: None. COMPARISON: None provided. FINDINGS: VERTEBRAE: No acute fracture or focal osseous lesion. ALIGNMENT: Straightening of the lumbar spine. Scoliosis with convexity to the right side. SPINAL CORD AND CAUDA EQUINA: No abnormal signal or mass. FINDINGS BY LEVEL: L1-L2: Disc dessication. Diffuse posterior disc bulge causing mild spinal canal compromise without significant nerve root compression. Ligamentum flavum hypertrophy further causes spinal canal compromise. L2-L3: Disc dessication. Diffuse posterior disc bulge causing mild spinal canal compromise, causing abutment of bilateral traversing nerve roots. Ligamentum flavum hypertrophy further causes spinal canal compromise. Minimal bilateral facetal joint effusion. L3-L4: Disc dessication. Diffuse posterior and left paracentral disc bulge causing mild spinal canal compromise, causing abutment of bilateral traversing and left exiting nerve roots. Ligamentum flavum hypertrophy further causes spinal canal compromise. Facetal arthropathy. Reduction in the intervertebral disc space. L4-L5: Disc dessication. Diffuse posterior and bilateral paracentral disc bulge causing mild spinal canal compromise, causing abutment of bilateral traversing and exiting nerve roots. Ligamentum flavum hypertrophy further causes spinal canal compromise. Facetal arthropathy. Reduction in the intervertebral disc space. L5-S1: Disc dessication. Central annular fissure. No central canal or foraminal stenosis. PARASPINAL SOFT TISSUES: Unremarkable. IMPRESSION: 1. No acute osseous injury. 2. Multilevel degenerative disc disease, most pronounced at L3-L4 and L4-L5 levels, with mild spinal canal stenosis at L1-L2 through L4-L5 due to disc bulges and ligamentum flavum hypertrophy. 3. Scoliosis with convexity to the right and straightening of the normal lumbar lordosis. Formerly [facility], 1928–1983
[2025-07-28] MEDS: MAGNESIUM CITRATE 296 ML SOLUTION PO ONE (17:50)
--- NOTE | 2025-07-28 23:40 | HMCIMG ---
EXAM: ULTRASOUND ABDOMEN, RIGHT UPPER QUADRANT (LIMITED) Technique: Transabdominal, grayscale sonography of the right upper quadrant with targeted evaluation of the liver, gallbladder, common bile duct, pancreas (as visualized), and right kidney. Clinical Information: History of liver cyst. Findings: Liver: Simple cyst in the right lobe measuring 1.3 ??? 1.4 ??? 1.3 cm; additional simple cyst at the hepatic dome measuring 5 ??? 5 mm. Gallbladder and biliary tree: Gallbladder wall measures 1 mm and appears normal; no pericholecystic fluid is identified. Common bile duct: Measures 5 mm. Pancreas: Obscured on this examination. Right kidney: Measures approximately 9.7 ??? 4.0 ??? 4.8 cm; mild renal cortical atrophy is suggested. Echogenic linear foci compatible with vascular calcifications are present. Peritoneum/upper abdomen: Small volume free fluid in the right upper quadrant. Pleura/diaphragm: Minimal right pleural effusion. Impression: * Simple hepatic cysts in the right lobe (1.3 ??? 1.4 ??? 1.3 cm) and at the dome (5 mm). Compared with computed tomography of the abdomen and pelvis without contrast dated July 27, 2025 at 12:44 EDT, hepatic cysts are confirmed by ultrasound; interval size assessment should consider modality differences. * Minimal right pleural effusion and small-volume free fluid in the right upper quadrant; correlate clinically. * Right kidney mildly atrophic with vascular calcifications; no acute obstructive findings by ultrasound. * Common bile duct 5 mm and gallbladder wall 1 mm without sonographic signs of acute cholecystitis. * Pancreas obscured on this examination. /[place]
[2025-07-29] VITALS (9 sets, daily range): BP systolic 124–172; BP diastolic 63–79; PULSE 63–83; RESP 17–18; TEMP 97.5–98; O2SAT 97–98
[2025-07-29 04:08] LABS: IMMATURE GRANULOCYTE ABSOLUTE 0.02 K/uL (0-1); NUCLEATED RED BLOOD CELLS 0.0 % (0.0-0.19); PLATELET COUNT (AUTO) 194 K/uL (130-400); RED BLOOD CELL COUNT(AUTO) 3.82 MIL/uL (4.50-6.20); RED CELL DISTRIBUTION WIDTH 14.6 % (11.0-15.5); WHITE BLOOD COUNT (AUTO) 7.6 K/uL (4.8-10.8)
[2025-07-29 04:26] LABS: ASPARTATE AMINOTRANSFERASE 18.0 U/L (10-37); CREATININE 0.8 mg/dL (0.5-1.3); GLOMERULAR FILTR. RATE CALC 85.0 mL/min (>90); GLUCOSE,RANDOM 122.0 mg/dL (70-105); SODIUM SERUM 138.0 mmol/L (136-145); TOTAL PROTEIN, SERUM 5.9 g/dL (6.0-8.3); UREA NITROGEN, BLOOD 21.0 mg/dL (7-18)
--- NOTE | 2025-07-29 10:29 | PN ---
[facility] PROGRESS NOTE Date Patient Seen: Jul 29, 2025 Time of Visit: 10:29 Supervising Physician: DR. BANDA Primary Care Physician: Dr. Scott Lu Inpatient Consults: NA PROBLEM LIST: Acute intractable pain to left hip area Anorexia due to intractable pain Acute dehydration on admission Simple hepatic right lobe cyst Multilevel lumbar spondylosis with diffuse disc bulges and facet arthropathy Adult Failure to Thrive Unintentional weight loss BPH Lumbar pain Hypertension Suspected carotid stenosis, on xarelto (on hold, on lovenox) INTERVAL HISTORY: Patient evaluated at bedside today. Son at bedside. Patient is awake, alert, and oriented. At this time he denies pain to his back. We will continue to control pain to lumbar area by adding Decadron 4mg orally every 6 hours, and Valium 5 mg oral BID as needed. Patient states he feels much better from his stomach after having 3 bowel movements. Patient and son report he has been drinking his supplements and picking at food through out the day. Patient and son updated on MRI of lumbar area. Patient continues to say he would not go through surgery if he needing one. Let him know a neurosurgeon has been consulted and should be by later to see him. US of liver showed a simple cyst to right lobe. No new orders for this. Bedside nurse reports no acute findings. Denies any chest pain, abdominal pain, nausea or vomiting. REVIEW OF SYSTEMS: 12 point ROS reviewed with patient. Pertinent positives mentioned above. Otherwise negative. PHYSICAL EXAM: GENERAL: alert, weak, awake oriented x 3 HEENT: EOMI, Sclera non icteric, moist mucosa NECK: Supple, no JVD, trachea midline LUNGS: Clear breath sounds bilaterally. No wheezes HEART: Regular rate and rhythm. Normal S1 and S2, without murmurs ABD: Abdomen soft, nontender. Bowel sounds present EXT: No clubbing cyanosis or edema NEURO: Awake, alert, and oriented , follows commands Vital Signs (last 8hr) Date Time Temp Pulse Resp B/P (MAP) Pulse Ox O2 Delivery O2 Flow Rate FiO2 07/29/25 07:53 97.9 70 18 160/79 97 Room Air 07/29/25 04:00 97.5 71 18 143/72 97 Room Air 0.0 LABS: Hematology Labs: Test 07/29/25 03:37 Range/Units White Blood Count 7.6 4.8-10.8 K/uL Red Blood Count 3.82 L 4.50-6.20 MIL/uL Hemoglobin 11.0 L 14.0-18.0 g/dL Hematocrit 33.2 L 42-54 % Mean Corpuscular Volume 86.9 79-99 fL Mean Corpuscular Hemoglobin 28.8 27.0-33.0 pg Mean Corpuscular Hemoglobin Concent 33.1 32.0-36.0 g/dL Red Cell Distribution Width 14.6 11.0-15.5 % Platelet Count 194 130-400 K/uL Mean Platelet Volume 11.9 H 7.5-10.5 fL Immature Granulocyte % (Auto) 0.3 0-1 % Neutrophils (%) (Auto) 62.7 40.0-77.0 % Lymphocytes (%) (Auto) 24.7 21.0-51.0 % Monocytes (%) (Auto) 10.1 3.0-13.0 % Eosinophils (%) (Auto) 2.1 0.0-8.0 % Basophils (%) (Auto) 0.1 0.0-5.0 % Neutrophils # (Auto) 4.8 1.8-7.7 K/uL Lymphocytes # (Auto) 1.9 1.0-4.8 K/uL Monocytes # (Auto) 0.8 0.1-1.0 K/uL Eosinophils # (Auto) 0.16 0.00-0.70 K/uL Basophils # (Auto) 0.01 0.00-0.20 K/uL Absolute Immature Granulocyte (auto 0.02 0-1 K/uL Nucleated Red Blood Cells 0.0 0.0-0.19 % Chemistry Labs: Test 07/29/25 03:37 Range/Units Sodium Level 138 136-145 mmol/L Potassium Level 3.7 3.5-5.1 mmol/L Chloride Level 105 101-111 mmol/L Carbon Dioxide Level 26 21-32 mmol/L Blood Urea Nitrogen 21 H 7-18 mg/dL Creatinine 0.8 0.5-1.3 mg/dL Glomerular Filtration Rate Calc 85 >90 mL/min Random Glucose 122 H 70-105 mg/dL Total Calcium 8.5 8.5-10.1 mg/dL Magnesium Level 2.10 1.80-2.40 mg/dL Total Bilirubin 0.4 0.2-1.0 mg/dL Aspartate Amino Transf (AST/SGOT) 18 10-37 U/L Alanine Aminotransferase (ALT/SGPT) 23 # 12-78 U/L Alkaline Phosphatase 85 50-136 U/L Total Protein 5.9 L 6.0-8.3 g/dL Albumin 3.0 L 3.5-5.0 g/dL DIAGNOSTICS / RADIOLOGY RESULTS: n/a PLAN Continue with IV fluids Pending Neurology evaluation Continue with pain control Continue to monitor oral food intake NEURO: Minimize central acting medications as possible. Maintain fall precautions, adequate lighting during the day PULMONARY: Supplemental 02 as needed. Maintain aspiration precautions at all times CARDIOVASCULAR: Follow hemodynamics. Vital signs per facility protocol GI & NUTRITION: Continue with nutritional support. Continue stool softeners and laxatives as needed. KIDNEYS & ELECTROLYTES: Strict monitoring of intake, output and overall fluid balance. Avoid nephrotoxic medications to the extent possible. Medications to be dosed according to renal function. Monitor electrolytes and replace as needed ENDOCRINE: Maintain blood glucose between 100-180 at all times. Hypoglycemia protocol in place INFECTIOUS DISEASE: Trend temperature, WBC and procalcitonin level Follow cultures, deescalate antibiotics as soon as possible. Panculture if new onset fever ONCOLOGY/HEMATOLOGY/COAGULATION: Monitor for s/s of bleeding Monitor hemoglobin, coagulation studies as needed SKIN: Pressure ulcer prevention per facility protocol Specialty mattress ORTHO/REHAB: Continue PT/OT Prophylaxis: Continue GI and DVT prophylaxis Code Status: Full Resuscitation Disposition: TETE LOYDMICHELE AVILATAMARA Y ALEXIS Jul 29, 2025 10:29
[2025-07-29] MEDS ORDERED: diazePAM 2 MG TAB PO PRN (12:00)
[2025-07-29] MEDS ORDERED: diazePAM 5 MG TAB PO PRN (12:30)
[2025-07-30] VITALS (14 sets, daily range): BP systolic 108–170; BP diastolic 59–80; PULSE 62–84; RESP 15–20; TEMP 97.4–98.2; O2SAT 97–98
[2025-07-30 04:23] LABS: INR 1.02 (0.85-1.15)
[2025-07-30 04:25] LABS: IMMATURE GRANULOCYTE ABSOLUTE 0.03 K/uL (0-1); NUCLEATED RED BLOOD CELLS 0.0 % (0.0-0.19); PLATELET COUNT (AUTO) 179 K/uL (130-400); RED BLOOD CELL COUNT(AUTO) 3.89 MIL/uL (4.50-6.20); RED CELL DISTRIBUTION WIDTH 14.8 % (11.0-15.5); WHITE BLOOD COUNT (AUTO) 7.6 K/uL (4.8-10.8)
[2025-07-30 04:42] LABS: ASPARTATE AMINOTRANSFERASE 15.0 U/L (10-37); CREATININE 0.8 mg/dL (0.5-1.3); GLOMERULAR FILTR. RATE CALC 85.0 mL/min (>90); GLUCOSE,RANDOM 102.0 mg/dL (70-105); SODIUM SERUM 137.0 mmol/L (136-145); TOTAL PROTEIN, SERUM 5.8 g/dL (6.0-8.3); UREA NITROGEN, BLOOD 21.0 mg/dL (7-18)
[2025-07-30] MEDS ORDERED: IOHEXOL 180 MG/ML 10 ML VIAL ONE (11:25)
[2025-07-30] MEDS ORDERED: LIDOCAINE HCL 1% 20 ML VIAL ONE (11:40)
[2025-07-30] MEDS ORDERED: methylPREDNISolone aceTATE 40 MG/ML VIAL ONE (11:40)
--- NOTE | 2025-07-30 12:16 | CONS ---
CHIEF COMPLAINT: Lower back pain on the left side. HISTORY OF PRESENT ILLNESS: This is an 89-year-old male patient from a SNF facility who was brought due to a long-term resident on that facility with history of BPH, hypertension, presented to the emergency room with failure to thrive, not able to be eating or drinking due to the medication he was taking for the lower back pain. The patient get consulted to me because he was on an MRI showing significant stenosis and degeneration at the level of L4-L5, L3-L4, and consistent with inflammatory changes of the spine due to lumbar spondylosis with some kyphosis prominently to the right side. The patient was explained to the son about the options that we have about the management of this condition. He was taking Xarelto that has been stopped from 07/26/2025. The Lovenox is going to be put on hold today to see if we will be able to inject the patient for pain tomorrow. The patient told me that he also gets dehydrated because he was taking medication for high blood pressure. He was not feeling good with this and he stopped taking it and he lost his appetite. PAST MEDICAL HISTORY: The patient has a past medical history of BPH, history of hypertension, history of chronic low back pain. SOCIAL HISTORY: He denied smoking or drinking or tobacco abuse, neither drug abuse. FAMILY HISTORY: No history of malignant hyperthermia. ALLERGIES: No known history of any allergies. REVIEW OF SYSTEMS: GENERAL: Denies any fever, nausea, or vomiting. HEAD, EARS, NOSE, AND THROAT: Denies any discharge from the nose, discharge from the mouth, erythema or edema. NECK: Denies any stiff neck or problem with trachea. LUNGS: Clear to auscultation bilaterally. No wheezes. HEART: Regular rate and rhythm. No murmur. No gallops. No evidence of discomfort. Denies any shortness of breath, dyspnea, orthopnea. ABDOMEN: No abdominal pain, no dyspepsia. No hematochezia. No bleeding. EXTREMITIES: Denies any cyanosis or clubbing. He does not describe any claudication at the moment. I asked him for that. NEUROLOGIC: He denies any loss of consciousness or any syncope or any exchange of mentation. PHYSICAL EXAMINATION: VITAL SIGNS: Upon review of vital signs, the patient had a temperature of 97.9 with a pulse of 71, respiratory rate 19. Mean arterial pressure is 89 with a pulse of 99. GENERAL: The patient is alert, oriented, following command. HEAD, EARS, NOSE AND THROAT: Pupils are round, reactive to light and accommodation. ABDOMEN: No abdominal pain, soft, depressible, nontender. EXTREMITIES: No cyanosis or clubbing. NEUROLOGIC: Motor strength is 5/5 on the upper extremity. Lower extremity 5/5 as well. No evidence of neurological deficit. CHEST: Symmetric, resonant. Rubs are negative. GENITOURINARY: Normal and adequate for sex and age. No evidence of lesions. LABORATORY DATA: The patient has a hemoglobin of 11.6, hematocrit 34.0 with a platelet count of 181,000. Sodium 136, potassium 3.7, chloride 101, carbon dioxide 29, BUN 23, creatinine 1.0. The patient had a CT scan, MRI that shows significant disk desiccation at L1-L2, L2-L3, L3-L4, L4-L5, and L5-S1 with changes of inflammation at L3-L4 and L4-L5 with severe intractable pain on the right side consistent with the findings on the MRI. Also, there is hypertrophy and ligamentum flavum and there is some scoliosis. From my perspective, the plan is to try to consider an epidural steroid injection at the L3-L4, L4-L5 mainly to the left side versus facet joint injection. The patient's son was explained in front of the MRI about the possibility of doing a surgical intervention that included a major surgery like a decompression and a fusion considering he had scoliosis and he had multiple level disease, but the father refused to have this procedure done considering his age and his medical conditions. We are going to go ahead and look at tomorrow for an epidural steroid injection at L3-L4 and L4-L5 on the left side involving the medial branch. TID: [id number] RECEIPT: [id number] [facility]
[2025-07-30] MEDS ORDERED: TRIAMCINOLONE ACETONIDE 10MG/1ML 5ML VIAL IJ ONE (12:54)
[2025-07-30] MEDS ORDERED: MIDAZOLAM HCL 1 MG/ML 2ML VIAL ONE (13:23)
[2025-07-30] MEDS ORDERED: LIDOCAINE PF 100MG/5ML (2%) SYRINGE 5ML ONE (13:23)
[2025-07-30] MEDS: TRIAMCINOLONE ACETONIDE 40 MG/ML 1ML VIAL SQ ONE (13:30)
--- NOTE | 2025-07-30 14:31 | PN ---
[facility] PROGRESS NOTE Date Patient Seen: Jul 30, 2025 Time of Visit: 1015 Supervising Physician: Dr. Draper Primary Care Physician: Dr. Scott Lu Inpatient Consults: NA PROBLEM LIST: Acute intractable pain to left hip area Anorexia due to intractable pain Acute dehydration on admission Simple hepatic right lobe cyst Multilevel lumbar spondylosis with diffuse disc bulges and facet arthropathy Adult Failure to Thrive Unintentional weight loss BPH Lumbar pain Hypertension Suspected carotid stenosis, on xarelto (on hold, on lovenox) INTERVAL HISTORY: Patient evaluated at bedside today. Son at bedside. Patient is awake, alert, and oriented. At this time he denies pain to his back. Patient evaluated by neurosurgeon, will have a medical branch block to L3, L4, L5 for lumbar pain. Patient NPO for procedure. Patient denies any nausea, vomiting, diarrhea, abdominal discomfort and chest. No shortness of breath. Patient is hemodynamically stable. Bedside nurse reports no acute findings. REVIEW OF SYSTEMS: 12 point ROS reviewed with patient. Pertinent positives mentioned above. Otherwise negative. PHYSICAL EXAM: GENERAL: alert, weak, awake oriented x 3 HEENT: EOMI, Sclera non icteric, moist mucosa NECK: Supple, no JVD, trachea midline LUNGS: Clear breath sounds bilaterally. No wheezes HEART: Regular rate and rhythm. Normal S1 and S2, without murmurs ABD: Abdomen soft, nontender. Bowel sounds present EXT: No clubbing cyanosis or edema NEURO: Awake, alert, and oriented , follows commands Vital Signs (last 8hr) Date Time Temp Pulse Resp B/P (MAP) Pulse Ox O2 Delivery O2 Flow Rate FiO2 07/30/25 14:21 65 16 139/61 97 Room Air 07/30/25 14:16 67 17 127/66 96 Room Air 07/30/25 14:11 66 16 117/61 96 Room Air 07/30/25 14:06 69 16 120/64 97 Room Air 07/30/25 14:01 72 15 108/62 97 Nonrebreathing Mask 10.0 07/30/25 13:56 97.5 74 16 109/59 97 Nonrebreathing Mask 10.0 07/30/25 11:45 98.2 66 16 170/76 98 Room Air 07/30/25 07:10 97.3 68 18 161/74 98 Room Air LABS: Hematology Labs: Test 07/30/25 03:50 Range/Units White Blood Count 7.6 4.8-10.8 K/uL Red Blood Count 3.89 L 4.50-6.20 MIL/uL Hemoglobin 11.2 L 14.0-18.0 g/dL Hematocrit 34.1 L 42-54 % Mean Corpuscular Volume 87.7 79-99 fL Mean Corpuscular Hemoglobin 28.8 27.0-33.0 pg Mean Corpuscular Hemoglobin Concent 32.8 32.0-36.0 g/dL Red Cell Distribution Width 14.8 11.0-15.5 % Platelet Count 179 130-400 K/uL Mean Platelet Volume 11.7 H 7.5-10.5 fL Immature Granulocyte % (Auto) 0.4 0-1 % Neutrophils (%) (Auto) 58.6 40.0-77.0 % Lymphocytes (%) (Auto) 26.7 21.0-51.0 % Monocytes (%) (Auto) 11.2 3.0-13.0 % Eosinophils (%) (Auto) 2.6 0.0-8.0 % Basophils (%) (Auto) 0.5 0.0-5.0 % Neutrophils # (Auto) 4.4 1.8-7.7 K/uL Lymphocytes # (Auto) 2.0 1.0-4.8 K/uL Monocytes # (Auto) 0.9 0.1-1.0 K/uL Eosinophils # (Auto) 0.20 0.00-0.70 K/uL Basophils # (Auto) 0.04 0.00-0.20 K/uL Absolute Immature Granulocyte (auto 0.03 0-1 K/uL Nucleated Red Blood Cells 0.0 0.0-0.19 % Chemistry Labs: Test 07/30/25 03:50 07/29/25 03:37 Range/Units Sodium Level 137 136-145 mmol/L Potassium Level 4.1 3.5-5.1 mmol/L Chloride Level 104 101-111 mmol/L Carbon Dioxide Level 27 21-32 mmol/L Blood Urea Nitrogen 21 H 7-18 mg/dL Creatinine 0.8 0.5-1.3 mg/dL Glomerular Filtration Rate Calc 85 >90 mL/min Random Glucose 102 70-105 mg/dL Total Calcium 8.4 L 8.5-10.1 mg/dL Total Bilirubin 0.4 0.2-1.0 mg/dL Aspartate Amino Transf (AST/SGOT) 15 10-37 U/L Alanine Aminotransferase (ALT/SGPT) 17 12-78 U/L Alkaline Phosphatase 81 50-136 U/L Total Protein 5.8 L 6.0-8.3 g/dL Albumin 2.8 L 3.5-5.0 g/dL Magnesium Level 2.10 1.80-2.40 mg/dL Coagulation Labs: Test 07/30/25 03:50 Range/Units Prothrombin Time 10.8 9.6-11.6 SEC Prothromb Time International Ratio 1.02 0.85-1.15 Activated Partial Thromboplast Time 32.5 26.3-35.5 SEC DIAGNOSTICS / RADIOLOGY RESULTS: PLAN Continue with IV fluids Continue with pain control Continue to monitor oral food intake NEURO: Minimize central acting medications as possible. Maintain fall precautions, adequate lighting during the day PULMONARY: Supplemental 02 as needed. Maintain aspiration precautions at all times CARDIOVASCULAR: Follow hemodynamics. Vital signs per facility protocol GI & NUTRITION: Continue with nutritional support. Continue stool softeners and laxatives as needed. KIDNEYS & ELECTROLYTES: Strict monitoring of intake, output and overall fluid balance. Avoid nephrotoxic medications to the extent possible. Medications to be dosed according to renal function. Monitor electrolytes and replace as needed ENDOCRINE: Maintain blood glucose between 100-180 at all times. Hypoglycemia protocol in place INFECTIOUS DISEASE: Trend temperature, WBC and procalcitonin level Follow cultures, deescalate antibiotics as soon as possible. Panculture if new onset fever ONCOLOGY/HEMATOLOGY/COAGULATION: Monitor for s/s of bleeding Monitor hemoglobin, coagulation studies as needed SKIN: Pressure ulcer prevention per facility protocol Specialty mattress ORTHO/REHAB: Continue PT/OT Prophylaxis: Continue GI and DVT prophylaxis Code Status: Full Resuscitation Disposition: TETE TAMARA PRASAD Y COPYRIGHT MANAGER Jul 30, 2025 14:31
--- NOTE | 2025-07-30 15:19 | HMCIMG ---
EXAM: LUMBAR SPINE RADIOGRAPH, 7 VIEWS (WITH FLUORO) Technique: Spot views (seven total). Fluoroscopy utilized. Clinical Information: Per requisition. Findings ??? Lumbar spine: Alignment preserved without spondylolisthesis. Vertebral body heights maintained; no acute fracture. Multilevel marginal osteophytes. Intervertebral disc height loss at L4???5 and L5???S1. Facet joints and pedicles intact on oblique views without pars interarticularis defect. Sacroiliac joints symmetric. No suspicious lytic or blastic lesion. Impression: * Degenerative spondylosis with disc height loss at L4???5 and L5???S1 and marginal osteophytes. * No acute osseous abnormality; alignment preserved. /[place]
--- NOTE | 2025-07-30 15:24 | OP ---
DATE OF PROCEDURE: 07/30/2025 PREOPERATIVE DIAGNOSIS: Lumbago, lumbar spondylosis, severe intractable lower back pain. POSTOPERATIVE DIAGNOSIS: Lumbago, lumbar spondylosis, severe intractable lower back pain. SURGEON: Keven Dent MD PROCEDURE PERFORMED: Medial branch block bilateral injection L3, L4 and L5 on the left side, arthrogram and fluoroscopy. ANESTHESIA: GETA. DESCRIPTION OF PROCEDURE: Under sterile and controlled conditions, the patient was taken to the operating room. He was induced under local anesthetic with sedation, placed in a prone position with adequate padding of the upper and lower extremities. I went ahead and performed an injection of lidocaine 1% to the skin and subcutaneous tissue. After that, I went ahead and gave my 22 spinal needle and I passed my [address] down to the area of the transverse process junction with the facet joint in order to apply my needle into that area. I went ahead and applied my needle and injected the mix of Marcaine 0.25% and Kenalog into each one of the lamina facet joints and I injected into the transverse process junction at the level of L3, L4, and L5. I did use 1 mL of dye in the area of the joint in order to evaluate perfectly fine, the joint that I was able to put the injection. The patient did well throughout the procedure. No sign of complication. ESTIMATED BLOOD LOSS: 2 mL. TID: [id number] RECEIPT: [id number] MTD
[2025-07-31 00:28] VITALS: BP 148/69; PULSE 67; RESP 18; TEMP 98
[2025-07-31 04:19] VITALS: BP 145/66; PULSE 78; RESP 16; TEMP 98
[2025-07-31 04:49] LABS: NUCLEATED RED BLOOD CELLS 0.0 % (0.0-0.19); PLATELET COUNT (AUTO) 176.0 K/uL (130-400); RED BLOOD CELL COUNT(AUTO) 3.71 MIL/uL (4.50-6.20); RED CELL DISTRIBUTION WIDTH 14.4 % (11.0-15.5); WHITE BLOOD COUNT (AUTO) 6.6 K/uL (4.8-10.8)
[2025-07-31 05:07] LABS: CREATININE 0.8 mg/dL (0.5-1.3); GLOMERULAR FILTR. RATE CALC 85.0 mL/min (>90); GLUCOSE,RANDOM 124.0 mg/dL (70-105); PHOSPHORUS 3.4 mg/dL (2.5-4.9); SODIUM SERUM 134.0 mmol/L (136-145); UREA NITROGEN, BLOOD 19.0 mg/dL (7-18)
[2025-07-31 07:19] VITALS: BP 151/71; PULSE 80; RESP 16; TEMP 98.1
[2025-07-31 09:00] VITALS: O2SAT 97
[2025-07-31] MEDS ORDERED: DOCU-116 PO (10:02)
[2025-07-31] MEDS ORDERED: ACET-2079 PO (10:03)
--- NOTE | 2025-07-31 10:07 | DS ---
[facility] DISCHARGE SUMMARY Date Patient Seen: Jul 31, 2025 Time of Visit: 10:07 Supervising Physician: Dr. Tyler Moulton Primary Care Physician: Dr. Scott Lu Inpatient Consults: NA PROBLEM LIST: Acute intractable pain to left hip area resolved Anorexia due to intractable pain resolved Acute dehydration resolved Simple hepatic right lobe cyst Multilevel lumbar spondylosis with diffuse disc bulges and facet arthropathy Status post Medial branch block L3, L4, L5 on 07/30/[address] Dent Adult Failure to Thrive resolved Unintentional weight loss BPH Lumbar pain Hypertension Suspected carotid stenosis, on xarelto HPI (per admitting provider) Patient is an 89-year-old male who arrived to the ED via EMS from a SNF facility where he is a long-term resident. He has a past medical history significant for BPH, hypertension, presenting today after his SNF facility as stated he has not been eating well. On admission patient appears to be severely dehydrated, he has been started on fluid resuscitation. Patient is cachectic, but pleasant, willing to participate and physical exam and evaluation. Daughter and son at bedside. Patient appears not to think that he has not been eating enough, however he that he has very little appetite. He states that he feels hungry in his belly however he has no desire to consume food. Patient endorses prostate problems for which he takes tamsulosin, as well as lumbar pain. He states his lumbar pain is chronic, denies any recent falls or possibilities of fracture. Given the patient's slight abdominal distention and possibility of silent compression fracture we will order CT abdomen. Per son at bedside narcotic analgesia makes the patient extremely somnolent and obtunded. Patient's renal function will be monitored and we will initiate ketorolac for pain relief at this time. Hydralazine 25 PRN q.6 hours added for hypertension. Advised patient we will continue with fluid resuscitation overnight and re-evaluate labs in the morning. Patient states he is willing to cooperate to try to correct his recent decrease in appetite. Patient will be started on a regular diet. [facility] HOSPITAL COURSE: Patient in for chronic lumbar pain, failure to thrive, and dehydration. Patient received treatment radiological findings revealed multilevel lumbar spondylosis with diffuse disc bulges and facet arthropathy. Neurosurgeon consulted. Dr. Dent did a medial branch block to L3 L4, L5. Today patient evaluated at bedside. Son at bedside. Patient is awake, alert, and oriented. Complains of back pain due to the bed, but otherwise hip pain is resolved. Patient denies any nausea, vomiting, diarrhea, abdominal discomfort and chest. No shortness of breath. Patient is hemodynamically stable. Patient will be discharged home. Home medications resumed and pain medication prescribed for 5 days only. Patient to follow up with PCP and Dr. Anderson. Bedside nurse reports no acute findings. New Medications: Acetaminophen with Codeine (Acetaminophen-Cod #3 Tablet) 300 Mg-30 Mg Tablet 1 TAB PO Q6HPRN PRN for pain for 5 Days, #28 TAB 0 Refills Docusate Sodium (Colace) 100 Mg Capsule 1 CAP PO BID for 30 Days, #60 CAP 0 Refills Continued Medications: Diazepam (Diazepam) 10 Mg Tablet 10 MG PO as needed, TAB Tamsulosin HCl (Flomax) 0.4 Mg Cap.er.24h 0.4 MG PO DAILY, CAPSULE. PHYSICAL EXAM: GENERAL: awake, alert and oriented x 3 HEENT: EOMI, Sclera non icteric, moist mucosa NECK: Supple, no JVD, trachea midline LUNGS: Clear breath sounds bilaterally. No wheezes HEART: Regular rate and rhythm. Normal S1 and S2, without murmurs ABD: Abdomen soft, nontender. Bowel sounds present EXT: No clubbing cyanosis or edema NEURO: Awake, alert, and oriented , follows commands FOLLOW-UP: Follow-up with PCP in 2-3 days Follow up with neurosurgeon in 1 week. RECOMMENDATIONS: See Discharge Instructions This case was seen and discussed with my supervising physician. More than 36 minutes spent on discharge process, including evaluation of the patient, discuss ion with nursing staff, medication reconciliation and follow-up appointments TAMARA PRASAD APRN Jul 31, 2025 10:07
[2025-07-31 12:15] VITALS: BP 142/67; PULSE 80; RESP 18; TEMP 98
--- NOTE | 2025-07-31 12:56 | NUR ---
GAVE PATIENT DISCHARGE ORDERS AND WRITTEN PRESCRIPTION. REMOVED PATIENTS IV WITH CATHETER INTACT. PATIENT WAS TAKEN OUT VIA WHEELCHAIR TO A PRIVATE VEHICLE.
== END 2025-07-31 12:56 | disposition home or self-care (01) | DRG 552 ==
LOC: EDH 09:32 → EDHIP 13:10 → 1MS 22:34 → OBSVTOIN 07-29 09:00
PROVIDERS: ADMIT Internal Medicine Critical Care Medicine; ATTEND Internal Medicine Critical Care Medicine
PROC: BR191ZZ Fluoroscopy of Lumbar Spine using Low Osmolar Contrast (ICD-10-PCS; 2025-07-30)
PROC: 3E0U3BZ Introduction of Anesthetic Agent into Joints, Percutaneous Approach (ICD-10-PCS; 2025-07-30)
PROC: 3E0U33Z Introduction of Anti-inflammatory into Joints, Percutaneous Approach (ICD-10-PCS; principal; 2025-07-30 14:00)
DX: M47.816 Spondylosis without myelopathy or radiculopathy, lumbar region (principal); R62.7 Adult failure to thrive; I10 Essential (primary) hypertension; N40.0 Benign prostatic hyperplasia without lower urinary tract symptoms; R63.0 Anorexia; E86.0 Dehydration; K76.89 Other specified diseases of liver; R63.4 Abnormal weight loss; G89.29 Other chronic pain; Z68.23 Body mass index [BMI] 23.0-23.9, adult; M54.50 Low back pain, unspecified
CPT/HCPCS: 36415; 71045; 72110; 72128; 72131; 72146; 72148; 74176; 76705; 80048; 80053; 81003; 83735; 84100; 84484; 84550; 85025; 85027; 85610; 85730; 87426; 87804; 93005; 96360; 99285; G0378; J0360; J1010; J1650; J1885; J2003; J2250; J2470; J2704; J3010; J3301; J3490; J7120; J8540; A4930; J0665; Q9965

== ENCOUNTER 2025-09-06 11:17 | Inpatient (IN) | payer OTHER, MEDICARE ==
[~2025-09-06] VITALS: Ht 175.3 cm; Wt 55.7 kg
--- NOTE | 2025-09-06 11:30 | NUR ---
PT JUST NOW PLACED IN ED BED 11 BY [facility]
[2025-09-06 12:04] LABS: SARS-CoV-2, RNA, NAAT NEGATIVE SARS CoV-2 (NEGATIVE)
--- NOTE | 2025-09-06 12:04 | EKG ---
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 : [id number] Requested By: PARVIZ SMITH Order Number: [id number] Reading MD: Tata Manrique Measurements Intervals [place] Rate: 90 P: -20 [place]: 261 QRS: -76 QRSD: 131 T: 92 QT: 366 QTc: 445 Interpretive Statements Sinus rhythm Atrial premature complexes Prolonged [place] interval Left bundle branch block Compared to ECG 07/26/2025 10:13:38 Atrial premature complex(es) now present Left bundle-branch block now present Intraventricular conduction delay no longer present Left ventricular hypertrophy no longer present ST (T wave) deviation no longer present Myocardial infarct finding no longer present Electronically Signed On 09-07-2025 19:56:19 TEN [employer]ENT[employer] MANAGER by Tata Manrique Please click the below link to view image of tracing.
[2025-09-06 12:09] LABS: INFLUENZA TYPE A Negative For Type A (NEGATIVE); INFLUENZA TYPE B Negative For Type B (NEGATIVE)
[2025-09-06 12:12] LABS: IMMATURE GRANULOCYTE ABSOLUTE 0.06 K/uL (0-1); NUCLEATED RED BLOOD CELLS 0.0 % (0.0-0.19); PLATELET COUNT (AUTO) 230 K/uL (130-400); RED BLOOD CELL COUNT(AUTO) 3.98 MIL/uL (4.50-6.20); RED CELL DISTRIBUTION WIDTH 14.9 % (11.0-15.5); WHITE BLOOD COUNT (AUTO) 11.1 K/uL (4.8-10.8)
[2025-09-06 12:24] LABS: INR 1.08 (0.85-1.15)
[2025-09-06 12:26] LABS: CREATININE 0.9 mg/dL (0.5-1.3); GLOMERULAR FILTR. RATE CALC 82.0 mL/min (>90); GLUCOSE,RANDOM 136.0 mg/dL (70-105); SODIUM SERUM 130.0 mmol/L (136-145); UREA NITROGEN, BLOOD 34.0 mg/dL (7-18)
--- NOTE | 2025-09-06 12:34 | HMCIMG ---
EXAM: CR CHEST, 1 VIEW CLINICAL HISTORY: suspected pneumonia COMPARISON: Previous chest x-ray dated 07/26/2025. TECHNIQUE: Single frontal radiograph of the chest was obtained. FINDINGS: Lines/Devices: None. Lungs: Newly developed left lower lobe atelectatic band. Newly developed right lower lobar fine peribronchial thickening suggestive of bronchitis. No consolidation or ground-glass opacities are observed. There is no pleural effusion. There is no pneumothorax. Mediastinum and cardiovascular structures: Atheromatous calcified aortic knob. The cardiac silhouette is not enlarged. The central airway and mediastinal contours are unremarkable. Bones and soft tissues: Unremarkable. IMPRESSION: 1. Newly developed right lower lobe peribronchial thickening suggestive of bronchitis 2. Newly developed left lower lobe atelectatic band. 3.As compared to chest x-ray dated 07/26/2025,the current study reveals newly developed right lower lobar peribronchial thickening denoting bronchitis .Newly developed left lower lobar thick atelectasis. /[place]
[2025-09-06 12:35] LABS: ASPARTATE AMINOTRANSFERASE 76.0 U/L (10-37); CREATINE KINASE, TOTAL 95.0 U/L (21-232); TOTAL PROTEIN, SERUM 5.6 g/dL (6.0-8.3)
[2025-09-06] MEDS: ASPIRIN 325MG TAB PO ONE (13:01)
--- NOTE | 2025-09-06 13:43 | HP ---
[facility] HISTORY & PHYSICAL Date Patient Seen: Sep 06, 2025 Time of Visit: 13:43 Supervising Physician: Dr. Nunez Primary Care Physician: Dr. Scott Lu Outpatient Specialists: [ ] Inpatient Consults: Dr. 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 He is being admitted today for acute [place] [id number]. Patient endorses chest pain on admission that started this morning. He has been evaluated by Cardiology today in the patient's current state secondary to his anorexia and failure to thrive he is not a good candidate for left heart catheterization. He has been given a loading dose of Plavix 300 at this time, per nursing staff cardiology recommendations are to continue with conservative management at this time. Once patient's NSTEMI is properly addressed we will discuss options regarding the patient's anorexia and failure to thrive however I have advised the son at bedside with the patient's prognosis is very poor. Patient with recent admission for failure to thrive, discharged several days ago and son reports that the patient has not been eating at home except for a few sips of supplemental nutritional shakes. Patient will be admitted to [facility] for tele monitoring and administration of heparin drip. We will initiate pain management with the patient's lumbar spondylosis. Recommendations for hospice will be discussed on this admission. Plan Initiate heparin drip for NSTEMI Analgesia for lumbar spondylosis Patient's prognosis is poor Soft diet Trend troponin Follow Cardiology recommendations Not a candidate for left heart catheterization Follow morning labs GI prophylaxis PAST MEDICAL HX: see above PAST SURGICAL HX: noncontributory SOCIAL HISTORY: No tobacco, ETOH, or illicit drug use Coded Allergies: No Known Allergies (Unverified Allergy, 01/29/12) No Known Drug Allergies (Unverified Allergy, 12/11/13) REVIEW OF SYSTEMS: 12 point ROS reviewed with patient. Pertinent positives mentioned above. Otherwise negative. PHYSICAL EXAM: GENERAL: alert, weak, awake oriented x 3 HEENT: EOMI, Sclera non icteric, moist mucosa NECK: Supple, no JVD, trachea midline LUNGS: Clear breath sounds bilaterally. No wheezes HEART: Regular rate and rhythm. Normal S1 and S2, without murmurs ABD: Abdomen soft, nontender. Bowel sounds present EXT: No clubbing cyanosis or edema NEURO: Alert and oriented to person, follows commands Vital Signs (last 8hr) Date Time Temp Pulse Resp B/P (MAP) Pulse Ox O2 Delivery O2 Flow Rate FiO2 09/06/25 11:24 97.9 94 19 129/71 98 Room Air 0 LABS: Hematology Labs: Test 09/06/25 01:15 Range/Units White Blood Count 11.1 H 4.8-10.8 K/uL Red Blood Count 3.98 L 4.50-6.20 MIL/uL Hemoglobin 11.1 L 14.0-18.0 g/dL Hematocrit 34.7 L 42-54 % Mean Corpuscular Volume 87.2 79-99 fL Mean Corpuscular Hemoglobin 27.9 27.0-33.0 pg Mean Corpuscular Hemoglobin Concent 32.0 32.0-36.0 g/dL Red Cell Distribution Width 14.9 11.0-15.5 % Platelet Count 230 130-400 K/uL Mean Platelet Volume 11.9 H 7.5-10.5 fL Immature Granulocyte % (Auto) 0.5 0-1 % Neutrophils (%) (Auto) 81.7 H 40.0-77.0 % Lymphocytes (%) (Auto) 7.9 L 21.0-51.0 % Monocytes (%) (Auto) 9.6 3.0-13.0 % Eosinophils (%) (Auto) 0.1 0.0-8.0 % Basophils (%) (Auto) 0.2 0.0-5.0 % Neutrophils # (Auto) 9.0 H 1.8-7.7 K/uL Lymphocytes # (Auto) 0.9 L 1.0-4.8 K/uL Monocytes # (Auto) 1.1 H 0.1-1.0 K/uL Eosinophils # (Auto) 0.01 0.00-0.70 K/uL Basophils # (Auto) 0.02 0.00-0.20 K/uL Absolute Immature Granulocyte (auto 0.06 0-1 K/uL Nucleated Red Blood Cells 0.0 0.0-0.19 % White Cell Morphology Comment See comments Chemistry Labs: Test 09/06/25 01:15 Range/Units Sodium Level 130 L 136-145 mmol/L Potassium Level 3.7 3.5-5.1 mmol/L Chloride Level 95 L 101-111 mmol/L Carbon Dioxide Level 25 21-32 mmol/L Blood Urea Nitrogen 34 H 7-18 mg/dL Creatinine 0.9 0.5-1.3 mg/dL Glomerular Filtration Rate Calc 82 >90 mL/min Random Glucose 136 H 70-105 mg/dL Total Calcium 8.5 8.5-10.1 mg/dL Magnesium Level 2.00 1.80-2.40 mg/dL Total Bilirubin 1.0 0.2-1.0 mg/dL Aspartate Amino Transf (AST/SGOT) 76 H 10-37 U/L Alanine Aminotransferase (ALT/SGPT) 27 12-78 U/L Alkaline Phosphatase 200 H 50-136 U/L Total Creatine Kinase 95 21-232 U/L Troponin I High Sensitivity 60443 *H 4-75 ng/L B-Type Natriuretic Peptide 243 H 0-100 pg/mL Total Protein 5.6 L 6.0-8.3 g/dL Albumin 2.5 L 3.5-5.0 g/dL Lipase 21 16-77 U/L Coagulation Labs: Test 09/06/25 01:15 Range/Units Prothrombin Time 11.4 9.6-11.6 SEC Prothromb Time International Ratio 1.08 0.85-1.15 Activated Partial Thromboplast Time 34.1 26.3-35.5 SEC DIAGNOSTICS / RADIOLOGY RESULTS: [ ] PLAN NEURO: Minimize central acting medications as possible. Maintain fall precautions, adequate lighting during the day PULMONARY: Supplemental 02 as needed. Maintain aspiration precautions at all times CARDIOVASCULAR: Follow hemodynamics. Vital signs per facility protocol GI & NUTRITION: Continue with nutritional support. Continue stool softeners and laxatives as needed. KIDNEYS & ELECTROLYTES: Strict monitoring of intake, output and overall fluid balance. Avoid nephrotoxic medications to the extent possible. Medications to be dosed according to renal function. Monitor electrolytes and replace as needed ENDOCRINE: Maintain blood glucose between 100-180 at all times. Hypoglycemia protocol in place INFECTIOUS DISEASE: Trend temperature, WBC and procalcitonin level Follow cultures, deescalate antibiotics as soon as possible. Panculture if new onset fever ONCOLOGY/HEMATOLOGY/COAGULATION: Monitor for s/s of bleeding Monitor hemoglobin, coagulation studies as needed SKIN: Pressure ulcer prevention per facility protocol Specialty mattress ORTHO/REHAB: Continue PT/OT Prophylaxis: Continue GI and DVT prophylaxis Code Status: Full Resuscitation Disposition: TBD Other: Total patient care time exceeds 35 minutes excluding all procedures. CSOTT ANSARI PAC Sep 06, 2025 13:43
[2025-09-06] MEDS ORDERED: ARTIFICAL TEARS SOL 15 ML OP PRN (14:00)
[2025-09-06] MEDS ORDERED: guaiFENesin-DM 200/20MG 10ML PO PRN (14:00)
[2025-09-06] MEDS ORDERED: BENZOCAINE/MENTH/CETYLPYRD CL 1 EACH LOZENGE MM PRN (14:00)
[2025-09-06] MEDS ORDERED: NITROGLYCERIN 0.4 MG SL TAB SL PRN (14:00)
[2025-09-06] MEDS ORDERED: LOPERAMIDE HCL 2 MG CAP PO PRN (14:00)
[2025-09-06] MEDS ORDERED: LACTULOSE 20 GM/30 ML UDCUP PO PRN (14:00)
--- NOTE | 2025-09-06 14:00 | NUR ---
CARDIOLOGY CONSULT: DR STARR CURRENTLY AT BEDSIDE
--- NOTE | 2025-09-06 14:02 | ERN ---
General Chief Complaint: General Complaint Stated Complaint: NSTEMI Time Seen by MD: 11:24 Time Seen by Midlevel: 11:24 Source: patient History of Present Illness Initial Comments The patient is an 89-year-old male presenting to the emergency department for evaluation of generalized body weakness/fatigue that has been ongoing for one week. The patient was recently admitted to our hospital one week ago and was hospitalized for one month. Associated symptoms include decreased p.o. intake, cough, and lower extremity pain. Allergies: Coded Allergies: No Known Allergies (Unverified Allergy, 01/29/12) No Known Drug Allergies (Unverified Allergy, 12/11/13) Home Meds Active Scripts Metoprolol Succinate (Toprol Xl) 25 Mg Tab.er.24h, 12.5 MG PO DAILY, #30 TAB Prov:JERARDO MARTINEZ [facility] 09/08/25 Furosemide (Lasix 20Mg Tab) 20 Mg Tablet, 20 MG PO DAILY, #30 TAB Prov:JERARDO MARTINEZ [facility] 09/08/25 Atorvastatin Calcium (LIPITOR) 40 Mg Tablet, 40 MG PO HS, #30 TAB Prov:JERARDO MARTINEZ [facility] 09/08/25 Aspirin (ASPIRIN 81MG CHEW TAB) 81 Mg Tab.chew, 81 MG PO DAILY, #30 TAB.CHEW Prov:JERARDO MARTINEZ [facility] 09/08/25 Acetaminophen with Codeine (Acetaminophen-Cod #3 Tablet) 300 Mg-30 Mg Tablet, 1 TAB PO Q6HPRN PRN for pain for 5 Days, #28 TAB 0 Refills Prov:TAMARA PRASAD Y CARDIOVASCULAR SONOGRAPHER 07/31/25 Docusate Sodium (Colace) 100 Mg Capsule, 1 CAP PO BID for 30 Days, #60 CAP 0 Refills Prov:TAMARA PRASAD APRN 07/31/25 Reported Medications Tamsulosin HCl (Flomax) 0.4 Mg Cap.er.24h, 0.4 MG PO DAILY, CAPSULE. 07/26/25 Diazepam (Diazepam) 10 Mg Tablet, 10 MG PO as needed, TAB 10/31/16 Past Medical History Past Medical History: Other Medical History Other: VERTIGO, CHRONIC BACK PAIN Past Surgical History: Other Surgical History Other: PROSTATE SX ROS Dictation CONSTITUTIONAL: Negative except for HPI HEAD/FACE: Negative except for HPI EENT: Negative except for HPI RESPIRATORY: Negative except for HPI GASTROINTESTINAL/ABDOMINAL: Negative except for HPI GENITOURINARY: Negative except for HPI MUSCULOSKELETAL: Negative except for HPI INTEGUMENTARY: Negative except for HPI NEUROLOGICAL/PSYCH: Negative except for HPI HEMATOLOGIC/LYMPHATIC: Negative except for HPI All Systems Negative, Except as noted above. 13 point review of systems assessed and all negative except for above. Physical Exam Physical Exam Dictation Vital Signs reviewed General Appearance: Alert, oriented x 3, frail appearing, pale Head and Face: non-traumatic. Eyes: PERRL, pink conjunctivas, eyelid no trauma, anterior chamber with arcus senilis. Ears: Pinnas intact and no signs of trauma or erythema ear canals clear and no discharge TM no erythema Nose: No discharge, no bleeding. Oropharynx: Mouth normal, tongue pink, pharynx clear,no erythema, tonsils no exudates, no abscesses noted, mucous membrane moist Neck: Supple, non-tender, no thyromegaly, no masses, no JVD, no bruits Breast:Deferred Chest:No tenderness, no crepitus, no paradoxical movement, no retractions Lungs:Clear, well-ventilated, symmetric, no rales, no wheezing, no rhonchi, no stridor, good breath sounds bilaterally Heart: Regular rate, regular rhythm, no murmur, no gallops Vascular: no peripheral edema, Abdomen: Soft, positive bowel sounds, nondistended, no guarding, nontender, no rebound, no masses no hepatomegaly, no splenomegaly, no Sabillon's sign, no hernias. Rectal: Deferred Genital: Deferred Neurological: Normal speech, motor function intact, sensory function intact Musculoskeletal: Neck nontender, full range of motion, back nontender, full range of motion, Extremities: nontender, full range of motion Skin: Color pink, dry, no turgor, no rash, no lacerations, no abrasions, no contusions. Lymphatic: Deferred Results Laboratory and Microbiology Lab and Micro Result Laboratory Tests Test 09/06/25 01:15 09/06/25 11:42 White Blood Count 11.1 K/uL (4.8-10.8) H Red Blood Count 3.98 MIL/uL (4.50-6.20) L Hemoglobin 11.1 g/dL (14.0-18.0) L Hematocrit 34.7 % (42-54) L Mean Corpuscular Volume 87.2 fL (79-99) Mean Corpuscular Hemoglobin 27.9 pg (27.0-33.0) Mean Corpuscular Hemoglobin Concent 32.0 g/dL (32.0-36.0) Red Cell Distribution Width 14.9 % (11.0-15.5) Platelet Count 230 K/uL (130-400) Mean Platelet Volume 11.9 fL (7.5-10.5) H Immature Granulocyte % (Auto) 0.5 % (0-1) Neutrophils (%) (Auto) 81.7 % (40.0-77.0) H Lymphocytes (%) (Auto) 7.9 % (21.0-51.0) L Monocytes (%) (Auto) 9.6 % (3.0-13.0) Eosinophils (%) (Auto) 0.1 % (0.0-8.0) Basophils (%) (Auto) 0.2 % (0.0-5.0) Neutrophils # (Auto) 9.0 K/uL (1.8-7.7) H Lymphocytes # (Auto) 0.9 K/uL (1.0-4.8) L Monocytes # (Auto) 1.1 K/uL (0.1-1.0) H Eosinophils # (Auto) 0.01 K/uL (0.00-0.70) Basophils # (Auto) 0.02 K/uL (0.00-0.20) Absolute Immature Granulocyte (auto 0.06 K/uL (0-1) Nucleated Red Blood Cells 0.0 % (0.0-0.19) White Cell Morphology Comment See comments Prothrombin Time 11.4 SEC (9.6-11.6) Prothromb Time International Ratio 1.08 (0.85-1.15) Activated Partial Thromboplast Time 34.1 SEC (26.3-35.5) Sodium Level 130 mmol/L (136-145) L Potassium Level 3.7 mmol/L (3.5-5.1) Chloride Level 95 mmol/L (101-111) L Carbon Dioxide Level 25 mmol/L (21-32) Blood Urea Nitrogen 34 mg/dL (7-18) H Creatinine 0.9 mg/dL (0.5-1.3) Glomerular Filtration Rate Calc 82 mL/min (>90) Random Glucose 136 mg/dL (70-105) H Total Calcium 8.5 mg/dL (8.5-10.1) Magnesium Level 2.00 mg/dL (1.80-2.40) Total Bilirubin 1.0 mg/dL (0.2-1.0) Aspartate Amino Transf (AST/SGOT) 76 U/L (10-37) H Alanine Aminotransferase (ALT/SGPT) 27 U/L (12-78) Alkaline Phosphatase 200 U/L (50-136) H Total Creatine Kinase 95 U/L (21-232) Troponin I High Sensitivity 14351 ng/L (4-75) *H B-Type Natriuretic Peptide 243 pg/mL (0-100) H Total Protein 5.6 g/dL (6.0-8.3) L Albumin 2.5 g/dL (3.5-5.0) L Lipase 21 U/L (16-77) Influenza Type A Antigen Negative For Type A Influenza Type B Antigen Negative For Type B SARS-CoV-2, RNA, NAAT NEGATIVE SARS CoV-2 Labs Reviewed?: Yes MDM MDM: The patient is an 89-year-old male who presents to the ER for evaluation of generalized weakness and failure to thrive. Per family member at bedside the patient has had poor oral intake and progressive functional decline. He was recently admitted to this hospital for proximally one month for failure to thrive and deconditioning. On arrival today the patient appears frail and cachectic but is awake and responsive. He denies active chest pain shortness for breath, nausea vomiting or diaphoresis due to baseline frailty and limited historical reliability symptom reporting a somewhat limited no reported recent fevers, falls, or merlene rological deficits. Initial laboratory evaluation demonstrates leukocytosis with a white blood cell count of 11.1, anemia with a hemoglobin of 11.1, and normal platelet count of 230. Chemistry panel was notable for hyponatremia with a sodium of 130 and a chloride of 95. Cardiac biomarkers [place] [address] . EKG shows a new onset left bundle branch block when compared to prior EKGs. Given the significant elevated troponin and EKG changes there is a high clinical concern for acute coronary syndrome. Although the patient is not reporting classic ischemic chest pain is advanced age limited physiological reserve and markedly elevated troponin level new conduction abnormality place him at high-risk for an acute coronary syndrome. Cardiology was consulted emergently. EKG was reviewed. Furniture Finisher did not feel this represents a full ST-elevation myocardial infarction at this time but rather an NSTEMI despite the presence of a new left bundle branch block cardio joycelyn recommended hospital admission initiation of heparin infusion close monitoring. He also recommends administering Brilinta. The plan is to evaluate the patient later today and determine candidacy for possible cardiac catheterization depending on clinical course and overall goals of care. The patient will be admitted to higher level of care for management of NSTEMI. Differential diagnosis: Acute coronary syndrome, STEMI, NSTEMI Rationale: Tests considered and ordered secondary to shared decision making include: Previous outside records reviewed: Old ER visits. Risk of complication and/or morbidity or mortality of patient management: None Medications-Per medication reconciliation Need for hospitalization: Patient does meet criteria for hospitalization. Need for emergency major/minor surgery: No There are no social concerns with this patient. Prescription drug management Prescriptions will include symptomatic care Patient's prior external medical records from other ER visits were reviewed by me as indicated. Prior testing and results from previous visits were reviewed. Prior tests were taken into account with medical decision making and resource utilization, independent historian/historians were used to obtain complete medical history. I independently interpreted the test that were performed, results were reviewed by me and considered findings on radiology if ordered. Medical management and examination interpretation discussions were had by me with other qualified healthcare professionals as indicated for the patient's care. ED Course Orders Procedure Category Date Status Time 12 Lead Ekg Tracing- EKG 09/06/25 Resulted Technical 11:28 B-Type Natriuretic LAB 09/06/25 Complete Peptide 11:28 Cbc With Differential LAB 09/06/25 Complete 11:28 Comprehensive LAB 09/06/25 Complete Metabolic Panel 11:28 Covid Rna Naat LAB 09/06/25 Complete 11:28 Creatine Kinase, Total LAB 09/06/25 Complete 11:28 Influenza Type A & B, LAB 09/06/25 Complete Rapid 11:28 Lipase LAB 09/06/25 Complete 11:28 Magnesium LAB 09/06/25 Complete 11:28 Troponin I High LAB 09/06/25 Complete Sensitivity 11:28 Pt And Ptt LAB 09/06/25 Complete 11:28 Chest 1vw RAD 09/06/25 Resulted 11:28 Aspirin 325mg Tab PHA 09/06/25 Complete (Aspirin 325mg Tab) 13:00 Case Management CM 12/8/25 Transmitted Evaluation 12:39 Heparin 25,000 PHA 09/06/25 Complete Units/250ml D5w 13:30 Ticagrelor (Brilinta) PHA 09/06/25 Complete 13:30 Vital Signs Date Time Temp Pulse Resp B/P (MAP) Pulse Ox O2 Delivery O2 Flow Rate FiO2 09/06/25 13:00 93 17 121/74 98 Room Air* 0 21 09/06/25 12:00 94 18 130/71 98 Room Air* 0 21 09/06/25 11:24 97.9 94 19 129/71 98 Room Air 0 DX & DISP Disposition: Inpatient Departure Impression: Primary Impression: NSTEMI (non-ST elevated myocardial infarction) Condition: Stable Scripts Metoprolol Succinate (Toprol Xl) 25 Mg Tab.er.24h 12.5 MG PO DAILY, #30 TAB Prov: JERARDO MARTINEZ [facility] 09/08/25 Furosemide (Lasix 20Mg Tab) 20 Mg Tablet 20 MG PO DAILY, #30 TAB Prov: JERARDO MARTINEZ [facility] 09/08/25 Atorvastatin Calcium (LIPITOR) 40 Mg Tablet 40 MG PO HS, #30 TAB Prov: JERARDO MARTINEZ [facility] 09/08/25 Aspirin (ASPIRIN 81MG CHEW TAB) 81 Mg Tab.chew 81 MG PO DAILY, #30 TAB.CHEW Prov: JERARDO MARTINEZ [facility] 09/08/25 Referrals: ADI GONZALES MD (PCP) Time of Disposition: 22:03 I have reviewed the case, and I agree with, Diagnosis and Plan I performed the substantive portion of the visit. I have reviewed and personally made and approve the management plan that is documented in the note by myself or the BLAISE. I acknowledge for responsibility for the patient's management plan. PARVIZ SMITH PAC Sep 06, 2025 14:02
--- NOTE | 2025-09-06 15:14 | NUR ---
FAILED ATTEMPT TO CALL REPOR. NO ANSWER WHEN FLOOR NUMBER CALLED 6 RINGS
[2025-09-06 15:43] VITALS: BP 127/73; PULSE 104; RESP 18; TEMP 97.9
[2025-09-06 16:00] VITALS: O2SAT 96
--- NOTE | 2025-09-06 16:08 | NUR ---
DCP:HOME SW met with pt and son Juanito Son who was at bedside. Pt currently lives alone in his home. pt has a walker and cane that he uses to ambulate. Pt does not have home health or provider services at this time. As per son, pt will be soon getting provider services through [facility]. PCP is Dr Scott Lu and uses [facility] for any RX needs. At [place] pt will want to go home and family can assist with transportation.
[2025-09-06] MEDS: LIDOCAINE HCL 2% VISCOUS 30 ML, MAG/ALUM/SIMETH 30ML 30 ML, DICYCLOMINE HCL 20 MG PO PRN (17:54)
[2025-09-06 19:10] VITALS: BP 120/73; PULSE 100; RESP 20; TEMP 98.9
[2025-09-06 20:00] VITALS: O2SAT 100
--- NOTE | 2025-09-06 20:04 | CONS ---
Cardiology Consult Note Cardiology Attending: Mendel Plummer Consulting Physician: Hospitalist Date of Service: 09/06/25 Reason for Consult: ACS-NSTEMI HPI: This is an 89-year-old male with a past medical history of HTN, BPH, paroxysmal atrial fibrillation, on anticoagulation, adult failure to thrive, recent prolonged hospitalization where he was found to have disc desiccation at L1-L2, L2-L3, L3-L4, L4-L5 and L5-S1 with changes of inflammation and severe intractable pain in the right side, requiring multiple pain injections, who presents with generalized weakness/fatigue, one month in duration. The symptoms began after he was discharged from the hospital and over the ensuing timeframe remained constant, and occurred on a daily basis. The symptoms were exacerbated by physical activity and not alleviated by anything. Associated symptoms include decreased p.o. intake, cough, one episode of chest pain, and right lower extremity pain. Pertinent negatives included fever, chills, headache, dizziness, syncope, shortness for breath, PND, orthopnea, abdominal pain, or weight gain. The persistence of symptoms prompted the patient to come to the hospital where he was incidentally found to have elevated cardiac enzymes, [place] [address]. He was subsequently diagnosed with ACS NSTEMI. PMH: Listed above PSH: None FH: Significant for CAD, HTN, DMII, and CVA. SH: Denies alcohol, tobacco, or illicit drug use. Allergies: Coded Allergies: No Known Allergies (Unverified Allergy, 01/29/12) No Known Drug Allergies (Unverified Allergy, 12/11/13) Review of systems: General: Denies fever or chills HEENT: Denies changes in vision, earache or sore throat Neck: Denies pain or stiffness Cardio: As per the HPI Pulm: Denies SOB, coughing or wheezing GI: Denies abdominal pain, nausea, vomiting, diarrhea, or constipation. MSK: Positive for back pain and right lower extremity pain Heme: Denies anemia, easy bruising, or bleeding. Neuro: As per the HPI. Psych: Denies anxiety, depression, or suicide ideations. Physical Exam: Vital Signs Date Time Temp Pulse Resp B/P (MAP) Pulse Ox O2 Delivery O2 Flow Rate FiO2 09/06/25 16:00 96 Room Air* 0 21 09/06/25 15:43 97.9 104 18 127/73 General: Visibly frail and lethargic. Oriented x 3. NAD HEENT: NC/AT. Oral mucosa is moist. Neck: No masses, JVD, or carotid bruits Lungs: NRD. SCM. B/L air entry. Fine crackles heard in the lower lung art. Cardio: Rate @ 77bpm. Normal S1 and S2. +S4. PMI was not displaced. Abdomen: Soft. NT. ND. Normal active bowel sounds x 4 quadrants. Extremities: No edema, clubbing or cyanosis. Diminished pulses noted throughout. Neuro: CN II-XII were grossly intact. No focal deficits. Labs: Laboratory Tests Test 09/06/25 01:15 09/06/25 11:42 09/06/25 13:53 Range/Units White Blood Count 11.1 H 4.8-10.8 K/uL Red Blood Count 3.98 L 4.50-6.20 MIL/uL Hemoglobin 11.1 L 14.0-18.0 g/dL Hematocrit 34.7 L 42-54 % Mean Corpuscular Volume 87.2 79-99 fL Mean Corpuscular Hemoglobin 27.9 27.0-33.0 pg Mean Corpuscular Hemoglobin Concent 32.0 32.0-36.0 g/dL Red Cell Distribution Width 14.9 11.0-15.5 % Platelet Count 230 130-400 K/uL Mean Platelet Volume 11.9 H 7.5-10.5 fL Immature Granulocyte % (Auto) 0.5 0-1 % Neutrophils (%) (Auto) 81.7 H 40.0-77.0 % Lymphocytes (%) (Auto) 7.9 L 21.0-51.0 % Monocytes (%) (Auto) 9.6 3.0-13.0 % Eosinophils (%) (Auto) 0.1 0.0-8.0 % Basophils (%) (Auto) 0.2 0.0-5.0 % Neutrophils # (Auto) 9.0 H 1.8-7.7 K/uL Lymphocytes # (Auto) 0.9 L 1.0-4.8 K/uL Monocytes # (Auto) 1.1 H 0.1-1.0 K/uL Eosinophils # (Auto) 0.01 0.00-0.70 K/uL Basophils # (Auto) 0.02 0.00-0.20 K/uL Absolute Immature Granulocyte (auto 0.06 0-1 K/uL Nucleated Red Blood Cells 0.0 0.0-0.19 % White Cell Morphology Comment See comments Prothrombin Time 11.4 9.6-11.6 SEC Prothromb Time International Ratio 1.08 0.85-1.15 Activated Partial Thromboplast Time 34.1 26.3-35.5 SEC Sodium Level 130 L 136-145 mmol/L Potassium Level 3.7 3.5-5.1 mmol/L Chloride Level 95 L 101-111 mmol/L Carbon Dioxide Level 25 21-32 mmol/L Blood Urea Nitrogen 34 H 7-18 mg/dL Creatinine 0.9 0.5-1.3 mg/dL Glomerular Filtration Rate Calc 82 >90 mL/min Random Glucose 136 H 70-105 mg/dL Total Calcium 8.5 8.5-10.1 mg/dL Magnesium Level 2.00 1.80-2.40 mg/dL Total Bilirubin 1.0 0.2-1.0 mg/dL Aspartate Amino Transf (AST/SGOT) 76 H 10-37 U/L Alanine Aminotransferase (ALT/SGPT) 27 12-78 U/L Alkaline Phosphatase 200 H 50-136 U/L Total Creatine Kinase 95 21-232 U/L Troponin I High Sensitivity 98558 *H 77345 *H 4-75 ng/L B-Type Natriuretic Peptide 243 H 0-100 pg/mL Total Protein 5.6 L 6.0-8.3 g/dL Albumin 2.5 L 3.5-5.0 g/dL Lipase 21 16-77 U/L Influenza Type A Antigen Negative For Type A NEGATIVE Influenza Type B Antigen Negative For Type B NEGATIVE SARS-CoV-2, RNA, NAAT NEGATIVE SARS CoV-2 NEGATIVE ECG 09/06/2025: Sinus rhythm. Left bundle branch block. Imaging: Chest x-ray: Bronchitis noted. Assessment: 1. Adult failure to thrive 2. Deconditioned state 3. Malnourished 4. ACS-NSTEMI 5. Intractable back and right lower extremity pain 6. Hyponatremia 7. Paroxysmal atrial fibrillation, on anticoagulation Plan: 1. ACS-NSTEMI -hemodynamically stable -ECG 09/06/2025: Sinus rhythm. Left bundle branch block. -laboratory data-high sensitivity troponin I: 26554, 50837 -the patient presents with generalized weakness/fatigue, one month induration. The symptoms were constant, occurred on a daily basis, were exacerbated by ph ysical activity, and not alleviated by anything. Associated symptoms included decreased p.o. intake, cough, one episode of chest pain, and back/lower extremity pain. In the ED the patient was incidentally found to have elevated cardiac enzymes and has since been diagnosed with ACS NSTEMI. The patient is visibly frail, deconditioned, and malnourished. More importantly he denies any active chest. The risks and benefits of proceeding with invasive treatment plan (LHC/coronary angiogram/possible PCI) were discussed with the patient and his son. And they have decided against an invasive treatment plan and would like to continue only on conservative goal-directed medical therapy. This includes aspirin 81 mg daily, clopidogrel 75 mg daily, and heparin IV drip (as per ACS protocol) for 48 hrs. We will also start the patient on metoprolol succinate 12.5 mg daily and atorvastatin 40 mg q.h.s.. -the patient's condition is guarded and he will be sent the ICU for close monitoring. 2. Paroxysmal atrial fibrillation -stable -ECG 09/06/2025: Sinus rhythm. Left bundle branch block -start metoprolol succinate 12.5 mg daily. Continue heparin IV drip, as per ACS protocol Thank you for this interesting consult and allowing us to participate in the care of your patient. Further recommendations to follow MENDEL PLUMMER MD Sep 06, 2025 20:04
[2025-09-06] MEDS ORDERED: FAMOTIDINE 20MG TAB PO SCH (21:00)
[2025-09-06] MEDS: FAMOTIDINE 20MG VIAL IV SCH (21:21)
[2025-09-06 23:10] VITALS: BP 120/63; PULSE 80; RESP 18; TEMP 98.6
[2025-09-07] VITALS (7 sets, daily range): BP systolic 113–131; BP diastolic 61–76; PULSE 76–105; RESP 16–20; TEMP 97.6–98.3; O2SAT 97
[2025-09-07 04:35] LABS: NUCLEATED RED BLOOD CELLS 0.0 % (0.0-0.19); PLATELET COUNT (AUTO) 257.0 K/uL (130-400); RED BLOOD CELL COUNT(AUTO) 3.6 MIL/uL (4.50-6.20); RED CELL DISTRIBUTION WIDTH 14.1 % (11.0-15.5); WHITE BLOOD COUNT (AUTO) 9.7 K/uL (4.8-10.8)
[2025-09-07 04:41] LABS: CREATININE 0.8 mg/dL (0.5-1.3); GLOMERULAR FILTR. RATE CALC 85.0 mL/min (>90); GLUCOSE,RANDOM 122.0 mg/dL (70-105); SODIUM SERUM 130.0 mmol/L (136-145); UREA NITROGEN, BLOOD 32.0 mg/dL (7-18)
--- NOTE | 2025-09-07 08:14 | PN ---
Subjective Review of Systems CARDIOLOGY PROGRESS NOTE Date of Visit: Sep 07, 2025 Time of Visit: 08:00 Events since last encounter This is 89-year-old gentleman with past medical history of hypertension, benign prostatic hyperplasia, paroxysmal atrial fibrillation on anticoagulation and has failure to thrive. He presented to emergency department with chronic back pain and severe pain in the right side requiring multiple pain medications. Currently complains of a persistent dry cough. He also complained of chest pain that was there for a week and has been gradually resolving. As per the nurse the primary team is planning to send the patient to hospice. He has not been feeding well and complains of weakness. His vitals are stable except his pulse is ranging from 80s to 100s (104/105). His blood pressure is in 120s and 130s systolic, saturation in 90s, respiratory rate 18-20 and afebrile. Pulmonary: Cough Musculoskeletal: back pain Objective Vitals and I/O Vital Sign (Last 24 Hours) 09/06/25 09/07/25 20:00 03:10 Temp 97.9 Pulse 105 Resp 20 B/P (MAP) 123/69 Pulse Ox 98 O2 Delivery Room Air O2 Flow Rate 0 FiO2 21 Intake & Output (last 24hrs) 09/06/25 09/06/25 09/07/25 15:00 23:00 07:00 Intake Total 28.0 ml 210.0 ml Output Total 150 ml Balance -122.0 ml 210.0 ml General: Alert, Oriented X3, No acute distress Neck: Supple, No JVD Lungs: Clear to auscultation, Normal air movement, NL respiratory effort Heart: Regular rate, Regular rhythm, Normal S1, Normal S2, No murmurs Abdomen: Normal bowel sounds, Soft, No tenderness, No masses Extremities: No cyanosis, No edema Neuro: Normal speech, Strength at 5/5 X4 ext, Sensation intact Results RADIOLOGY: [place] [address] [address] IMAGING REPORT Signed PATIENT: SAMIR ABDULLAHI MR#: [id number] : 1935 SEX: M AGE: 89 LOCATION: [facility] ORDER [id number] STATUS: REG REPORT#: [id number] SERVICE 1128 REASON: r/o pneumponia ORDERING PHYSICIAN: PARVIZ SMITH PAC PROCEDURE: CXR1VW - CHEST 1VW EXAM: CR CHEST, 1 VIEW CLINICAL HISTORY: suspected pneumonia COMPARISON: Previous chest x-ray dated 07/26/2025. TECHNIQUE: Single frontal radiograph of the chest was obtained. FINDINGS: Lines/Devices: None. Lungs: Newly developed left lower lobe atelectatic band. Newly developed right lower lobar fine peribronchial thickening suggestive of bronchitis. No consolidation or ground-glass opacities are observed. There is no pleural effusion. There is no pneumothorax. Mediastinum and cardiovascular structures: Atheromatous calcified aortic knob. The cardiac silhouette is not enlarged. The central airway and mediastinal contours are unremarkable. Bones and soft tissues: Unremarkable. IMPRESSION: 1. Newly developed right lower lobe peribronchial thickening suggestive of bronchitis 2. Newly developed left lower lobe atelectatic band. 3.As compared to chest x-ray dated 07/26/2025,the current study reveals newly developed right lower lobar peribronchial thickening denoting bronchitis .Newly developed left lower lobar thick atelectasis. /[place] DICTATED BY: ELEANOR JAVED MD DATE: 09/06/251332 ELECTRONICALLY SIGNED BY: ELEANOR JAVED MD DATE: 09/06/251332 EKG: [] Laboratory Tests Test 09/06/25 11:42 09/06/25 13:53 09/06/25 19:34 09/06/25 21:08 Influenza Type A Antigen Negative For Type A Influenza Type B Antigen Negative For Type B SARS-CoV-2, RNA, NAAT NEGATIVE SARS CoV-2 Troponin I High Sensitivity 34002 ng/L (4-75) *H 13900 ng/L (4-75) *H Activated Partial Thromboplast Time 59.0 SEC (26.3-35.5) #H Test 09/07/25 04:12 White Blood Count 9.7 K/uL (4.8-10.8) Red Blood Count 3.60 MIL/uL (4.50-6.20) L Hemoglobin 10.1 g/dL (14.0-18.0) L Hematocrit 30.0 % (42-54) L Mean Corpuscular Volume 83.3 fL (79-99) Mean Corpuscular Hemoglobin 28.1 pg (27.0-33.0) Mean Corpuscular Hemoglobin Concent 33.7 g/dL (32.0-36.0) Red Cell Distribution Width 14.1 % (11.0-15.5) Platelet Count 257 K/uL (130-400) Mean Platelet Volume 11.2 fL (7.5-10.5) H Nucleated Red Blood Cells 0.0 % (0.0-0.19) Sodium Level 130 mmol/L (136-145) L Potassium Level 3.5 mmol/L (3.5-5.1) Chloride Level 95 mmol/L (101-111) L Carbon Dioxide Level 25 mmol/L (21-32) Blood Urea Nitrogen 32 mg/dL (7-18) H Creatinine 0.8 mg/dL (0.5-1.3) Glomerular Filtration Rate Calc 85 mL/min (>90) Random Glucose 122 mg/dL (70-105) H Total Calcium 8.4 mg/dL (8.5-10.1) L Thyroid Stimulating Hormone (TSH) 0.74 uIU/mL (0.36-3.74) [place] [id number] ELECTRO CARDIOGRAM Draft PATIENT: SAMIR ABDULLAHI MR#: [id number] : 1935 SEX: M AGE: 89 LOCATION: [facility] ROOM/BED: ORDER [id number] REPORT#: [id number] REASON: ORDERING PHYSICIAN: PARVIZ SMITH PAC PROCEDURE: EKG - 12 LEAD EKG TRACING- TECHNICAL [facility] Test Date: 2025-09-06 Test Time: 11:54:52 Pat Name: SAMIR ABDULLAHI Department: [facility] Room: Gender: Beam Dyer Recessed Vat: 0699 : 1935 Requested By: PARVIZ SMITH Order Number: [id number] Reading MD: Measurements Intervals [place] Rate: 90 P: -20 WI: 261 QRS: -76 QRSD: 131 T: 92 QT: 366 QTc: 445 Interpretive Statements Sinus rhythm Atrial premature complexes Prolonged WI interval Left bundle branch block Please click the below link to view image of tracing. Medications Current Medications Aspirin 325 mg ONCE ONCE PO Last administered on 09/06/25at 13:01; Start 09/06/25 at 13:00; Stop 09/06/25 at 13:01; Status DC Heparin Sodium/ Dextrose 250 ml @ 0 mls/hr PROTOCOL IV Last administered on 09/06/25at 14:46; Start 09/06/25 at 13:30; Stop 10/06/25 at 13:29 Ticagrelor 90 mg ONCE ONCE PO; Start 09/06/25 at 13:30; Stop 09/06/25 at 13:59; Status DC Famotidine 20 mg BID PO; Start 09/06/25 at 21:00; Stop 09/06/25 at 13:46; Status DC Diphenhydramine HCl 25 mg Q4H PRN PO; Start 09/06/25 at 14:00; Stop 10/06/25 at 13:59 Diphenhydramine HCl 25 mg Q6H PRN IV; Start 09/06/25 at 14:00; Stop 10/06/25 at 13:59 Acetaminophen 650 mg Q6H PRN PO; Start 09/06/25 at 14:00; Stop 10/06/25 at 13:59 Acetaminophen 650 mg Q4H PRN PO Last administered on 09/06/25at 21:22; Start 09/06/25 at 14:00; Stop 10/06/25 at 13:59 Ondansetron HCl 4 mg Q6H PRN IV; Start 09/06/25 at 14:00; Stop 10/06/25 at 13:59 Zolpidem Tartrate 5 mg HS PRN PO; Start 09/06/25 at 14:00; Stop 10/06/25 at 13:59 Al Hydroxide/Mg Hydroxide 30 ml Q6H PRN PO; Start 09/06/25 at 14:00; Stop 10/06/25 at 13:59 Lactulose 20 gm BID PRN PO; Start 09/06/25 at 14:00; Stop 10/06/25 at 13:59 Nitroglycerin 0.4 mg PROTOCOL PRN SL; Start 09/06/25 at 14:00; Stop 10/06/25 at 13:59 Guaifenesin/ Dextromethorphan 10 ml Q4H PRN PO; Start 09/06/25 at 14:00; Stop 10/06/25 at 13:59 Famotidine 20 mg Q24H IV Last administered on 09/06/25at 21:21; Start 09/06/25 at 21:00; Stop 10/06/25 at 20:59 Guaifenesin 200 mg Q4H PRN PO; Start 09/06/25 at 14:00; Stop 10/06/25 at 13:59 Loperamide HCl 2 mg Q6H PRN PO; Start 09/06/25 at 14:00; Stop 10/06/25 at 13:59 Docusate Sodium 100 mg BID PRN PO; Start 09/06/25 at 14:00; Stop 10/06/25 at 13:59 Polyethylene Glycol 17 gm DAILY PRN PO; Start 09/06/25 at 14:00; Stop 10/06/25 at 13:59 Alprazolam 0.5 mg Q6H PRN PO; Start 09/06/25 at 14:00; Stop 10/06/25 at 13:59 Lidocaine HCl/Al Hydroxide/Mg Hydroxide/ Dicyclomine HCl 20ML OR AD MAALOX P... Q6H PRN PO Last administered on 09/06/25at 17:54; Start 09/06/25 at 14:00; Stop 10/06/25 at 13:59 Artificial Tears 1 DROP Q2H PRN OP; Start 09/06/25 at 14:00; Stop 10/06/25 at 13:59 Benzocaine 1 each Q2H PRN MM; Start 09/06/25 at 14:00; Stop 10/06/25 at 13:59 Clopidogrel Bisulfate 300 mg ONCE ONCE PO Last administered on 09/06/25at 14:27; Start 09/06/25 at 14:00; Stop 09/06/25 at 14:01; Status DC Heparin Sodium (Porcine) 5,000 unit STK-MED ONCE .ROUTE; Start 09/06/25 at 14:09; Stop 09/06/25 at 14:09; Status DC Heparin Sodium (Porcine) 4,000 unit ONCE ONCE IV Last administered on 09/06/25at 14:19; Start 09/06/25 at 14:30; Stop 09/06/25 at 14:31; Status DC Aspirin 81 mg DAILY PO; Start 09/07/25 at 09:00; Stop 10/07/25 at 08:59 Atorvastatin Calcium 40 mg HS PO Last administered on 09/06/25at 21:21; Start 09/06/25 at 21:00; Stop 10/06/25 at 20:59 Metoprolol Succinate 12.5 mg DAILY PO; Start 09/07/25 at 09:00; Stop 10/07/25 at 08:59 Assessment/Plan ASSESSMENT: 1. Adult failure to thrive 2. Deconditioned state 3. Malnourished 4. ACS-NSTEMI 5. Intractable back and right lower extremity pain 6. Hyponatremia 7. Paroxysmal atrial fibrillation, on anticoagulation PLAN: Patient is currently hemodynamically stable. He does not complain of any acute discomfort other than chronic back pain. He complains of loss of appetite and does not want to continue the diet. He has ECG showed left bundle branch block and constant elevation of troponin 01455, 91743, 61919. Currently he does not denies any active chest pain. Since the risks and benefits of proceeding with invasive treatment was discussed with the family and they decided against any invasive treatment plan we will continue with the conservative treatment plan for the patient. He is currently on [id number] mg daily, metoprolol succinate 12.5 mg, atorvastatin 40 mg, p.r.n. medications as needed. CHELSEA VELASCO MD Sep 07, 2025 08:14
[2025-09-07] MEDS: ASPIRIN 81MG CHEW TAB PO SCH (09:28)
[2025-09-07] MEDS: MAG/ALUM/SIMETH 30 ML UDCUP PO PRN (09:34)
--- NOTE | 2025-09-07 12:11 | PN ---
[facility] PROGRESS NOTE Date Patient Seen: Sep 07, 2025 Time of Visit: 12:11 Supervising Physician: Dr. Satinder Nunez Primary Care Physician: Dr. Scott Lu Outpatient Specialists: Pain specialist Inpatient Consults: Dr. 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 Dent Adult Failure to Thrive Unintentional weight loss BPH Hypertension Paroxysmal atrial fibrillation, on anticoagulation INTERVAL HISTORY: Patient assessed at bedside. AAOX3. Currently on 02@2LPM via NC. Weak and hypoxic. Complains of dyspnea with exertion. Continues on IV Heparin per cardiology. Troponin increased to 16,226. CUSTOMER SERVICE CLERK evaluated patient and no swa llowing issues detected. But patient is refusing to eat food, only wants to drink protein shake supplementation. Continues to complains of back pain. Lidocaine patch ordered. Patient states he wants to go home already and doesn't want to be in the hospital again. Spoke to patient about possible PEG tube insertion for nutrition if he is a candidate per GI and cleared by cardiology. Patient stated he didn't want a PEG tube and stated he had signed a DNR form already and just wanted to go home. Stated " I am going to be 89 already, I don't want to be here anymore". Son Juanito at bedside. Prognosis is guarded and high risk of decompensation. Both patient and son in agreement to listen to more information about hospice. Plan: Continue on heparin drip per cardiology Continue on aspirin, statin CM to provide information on hospice Echocardiogram ordered Further recommendations per hospital course DNR status AM labs Total patient care time exceeds 36 minutes excluding all procedures. REVIEW OF SYSTEMS: 12 point ROS reviewed with patient. Pertinent positives mentioned above. Otherwise negative. PHYSICAL EXAM: GENERAL: alert, weak, awake oriented x 3 HEENT: EOMI, Sclera non icteric, moist mucosa NECK: Supple, no JVD, trachea midline LUNGS: Clear breath sounds bilaterally. No wheezes HEART: Regular rate and rhythm. Normal S1 and S2, without murmurs ABD: Abdomen soft, nontender. Bowel sounds present EXT: No clubbing cyanosis or edema NEURO: Alert and oriented to person, follows commands Vital Signs (last 8hr) Date Time Temp Pulse Resp B/P (MAP) Pulse Ox O2 Delivery O2 Flow Rate FiO2 09/07/25 12:08 97.7 86 16 124/76 100 Nasal Cannula 2.0 09/07/25 08:12 97.9 85 16 130/61 97 Room Air LABS: Hematology Labs: Test 09/07/25 04:12 09/06/25 01:15 Range/Units White Blood Count 9.7 4.8-10.8 K/uL Red Blood Count 3.60 L 4.50-6.20 MIL/uL Hemoglobin 10.1 L 14.0-18.0 g/dL Hematocrit 30.0 L 42-54 % Mean Corpuscular Volume 83.3 79-99 fL Mean Corpuscular Hemoglobin 28.1 27.0-33.0 pg Mean Corpuscular Hemoglobin Concent 33.7 32.0-36.0 g/dL Red Cell Distribution Width 14.1 11.0-15.5 % Platelet Count 257 130-400 K/uL Mean Platelet Volume 11.2 H 7.5-10.5 fL Nucleated Red Blood Cells 0.0 0.0-0.19 % Immature Granulocyte % (Auto) 0.5 0-1 % Neutrophils (%) (Auto) 81.7 H 40.0-77.0 % Lymphocytes (%) (Auto) 7.9 L 21.0-51.0 % Monocytes (%) (Auto) 9.6 3.0-13.0 % Eosinophils (%) (Auto) 0.1 0.0-8.0 % Basophils (%) (Auto) 0.2 0.0-5.0 % Neutrophils # (Auto) 9.0 H 1.8-7.7 K/uL Lymphocytes # (Auto) 0.9 L 1.0-4.8 K/uL Monocytes # (Auto) 1.1 H 0.1-1.0 K/uL Eosinophils # (Auto) 0.01 0.00-0.70 K/uL Basophils # (Auto) 0.02 0.00-0.20 K/uL Absolute Immature Granulocyte (auto 0.06 0-1 K/uL White Cell Morphology Comment See comments Chemistry Labs: Test 09/07/25 04:12 09/06/25 19:34 09/06/25 01:15 Range/Units Sodium Level 130 L 136-145 mmol/L Potassium Level 3.5 3.5-5.1 mmol/L Chloride Level 95 L 101-111 mmol/L Carbon Dioxide Level 25 21-32 mmol/L Blood Urea Nitrogen 32 H 7-18 mg/dL Creatinine 0.8 0.5-1.3 mg/dL Glomerular Filtration Rate Calc 85 >90 mL/min Random Glucose 122 H 70-105 mg/dL Total Calcium 8.4 L 8.5-10.1 mg/dL Thyroid Stimulating Hormone (TSH) 0.74 0.36-3.74 uIU/mL Troponin I High Sensitivity 37639 *H 4-75 ng/L Magnesium Level 2.00 1.80-2.40 mg/dL Total Bilirubin 1.0 0.2-1.0 mg/dL Aspartate Amino Transf (AST/SGOT) 76 H 10-37 U/L Alanine Aminotransferase (ALT/SGPT) 27 12-78 U/L Alkaline Phosphatase 200 H 50-136 U/L Total Creatine Kinase 95 21-232 U/L B-Type Natriuretic Peptide 243 H 0-100 pg/mL Total Protein 5.6 L 6.0-8.3 g/dL Albumin 2.5 L 3.5-5.0 g/dL Lipase 21 16-77 U/L Coagulation Labs: Test 09/06/25 21:08 09/06/25 01:15 Range/Units Activated Partial Thromboplast Time 59.0 #H 26.3-35.5 SEC Prothrombin Time 11.4 9.6-11.6 SEC Prothromb Time International Ratio 1.08 0.85-1.15 DIAGNOSTICS / RADIOLOGY RESULTS: NA PLAN NEURO: Minimize central acting medications as possible. Maintain fall precautions, adequate lighting during the day PULMONARY: Supplemental 02 as needed. Maintain aspiration precautions at all times CARDIOVASCULAR: Follow hemodynamics. Vital signs per facility protocol GI & NUTRITION: Continue with nutritional support. Continue stool softeners and laxatives as needed. KIDNEYS & ELECTROLYTES: Strict monitoring of intake, output and overall fluid balance. Avoid nephrotoxic medications to the extent possible. Medications to be dosed according to renal function. Monitor electrolytes and replace as needed ENDOCRINE: Maintain blood glucose between 100-180 at all times. Hypoglycemia protocol in place INFECTIOUS DISEASE: Trend temperature, WBC and procalcitonin level Follow cultures, deescalate antibiotics as soon as possible. Panculture if new onset fever ONCOLOGY/HEMATOLOGY/COAGULATION: Monitor for s/s of bleeding Monitor hemoglobin, coagulation studies as needed SKIN: Pressure ulcer prevention per facility protocol Specialty mattress ORTHO/REHAB: Continue PT/OT Prophylaxis: Continue GI and DVT prophylaxis Code Status: DNR status Disposition: JERARDO URBINA Sep 07, 2025 12:11
--- NOTE | 2025-09-07 12:45 | NUR ---
BEDSIDE SWALLOW EVAL COMPLETED. no s/s of aspiration. RECOMMEND: minced and moist solids, thin liquids, and meds whole 1 per swallow or crushed with pureed as tolerated. COMPENSATORY STRATEGIES: 1. sit upright during oral intake 2. small bites/sips 3. slow oral intake 4. may need encouragement to eat due to poor appetite with low oral intake CONTRACT ASSISTANT reviewed results and recommendations with patient, family and nurse Bryson. CONTRACT ASSISTANT educated patient on risks and consequences of aspiration. Speech therapy not warranted at this time. All questions answered. Addendum: 09/07/[address] [facility] Amended: Links added.
[2025-09-07] MEDS: LIDOCAINE 4% ADH..PATCH TP SCH (13:20)
--- NOTE | 2025-09-07 16:07 | NUR ---
HOSPICE INFORMATION Sw me with pt and family at bedside and educated on hospice services and referral process. Son states that pt's son Juanito will be here in early am. Sw to visit with son in am to discuss hospice referral. MARK Nava made aware
--- NOTE | 2025-09-07 18:26 | HMCSR ---
APPROVED REPORT EXAM: Two-dimensional and M-mode echocardiogram with Doppler and color Doppler. INDICATION ICD: Non ST-elevation VT I21.4 2D Dimensions RVDd 3.3 cm LVEF(%) 28.3 (>50%) LVED Vol(simp.) 128.0 mL IVSd 0.8 (0.7-1.1cm) FS(%) 13 % LVES Vol(simp.) 85.0 mL LVDd 4.9 (3.8-5.6cm) Ao Root(2D) 3.8 (2.0-3.7cm) LVEF(%, simp.) 33 % PWd 1.0 (0.7-1.1cm) LVOT diam 2.4 (1.8-2.4cm) IVSs 0.8 cm LVDs 4.2 (2.5-4.0cm) PWs 1.2 cm Deformation Strain Apical 4 -7.5 % Apical 2 -7.8 % Apical 3 -7.8 % Global Strain -7.7 % M-Mode Dimensions EPSS 1.6 cm LA (MM) 4.7 (1.6-4.0cm) Ao Root(MM) 3.6 (2.0-3.7cm) Aortic Valve AoV Vmax 1.2 m/s Ao Peak GR 6.1 mmHg LVOT Vmax 0.7 m/s AoV VTI 0.2 m Ao Mean GR 3.8 mmHg LVOT VTI 0.13 m WILFREDO (VMAX) 2.67 cm2 WILFREDO (VTI) 2.6 cm2 Mitral Valve MV E Vmax 101.5 cm/s DECEL Time 104 ms MV A Vmax 48.0 cm/s P 1/2 T 44 ms E/A ratio 2.1 MVA (PHT) 5.0 cm2 TDI E/E' Medial 24.6 E/E' Lateral 23.1 Medial E' Peak V 4.12 cm/s Lateral E' Peak V 4.39 cm/s Pulmonary Valve PV Vmax 1.0 m/s PI End Nicole. Yonny 154.9 cm/s PV Mean GR 2.5 mmHg PV Peak GR 4.2 mmHg Tricuspid Valve TR Vmax 1.5 m/s RAP (EST) 3 mmHg RVSP 13.7 mmHg TR Peak GR 10.7 mmHg Left Ventricle The left ventricle is normal size. Severely reduced GLS -8.0%. There is extensive akinesis in the anteroseptal, anterior, and apical carranza. There is normal left ventricular wall thickness. LVEF is 25-30%. No left ventricle thrombus noted on this study. Restrictive diastolic filling pattern. Right Ventricle The right ventricle is normal size. The right ventricular systolic function is normal. Moderator band is seen in the right ventricle. Atria The left atrium size is normal. The right atrium size is normal. Aortic Valve Aortic valve is trileaflet, and sclerotic, but nonstenotic. No aortic regurgitation is present. There is no aortic valvular stenosis. Mitral Valve The mitral valve is normal in structure. There is no mitral valve regurgitation noted. There is no mitral valve stenosis. Tricuspid Valve The tricuspid valve is normal in structure. There is trace of tricuspid valve regurgitation noted. Pulmonic Valve The pulmonary valve is normal in structure. There is trace of pulmonic valvular regurgitation. Great Vessels The aortic root is normal in size. The IVC is normal in size and collapses >50% with inspiration. Pericardium There is a small pericardial effusion. Other Information Quality : Technically difficult stude due to body habitus Conclusion The left ventricle is normal size. There is normal left ventricular wall thickness. Severely reduced GLS -8.0%. There is extensive akinesis in the anteroseptal, anterior, and apical carranza. No left ventricle thrombus noted on this study. LVEF is 25-30%. Restrictive diastolic filling pattern. Aortic valve is trileaflet, and sclerotic, but nonstenotic. There is no mitral valve regurgitation noted. There is a small pericardial effusion.
[2025-09-08 03:38] VITALS: BP 113/55; PULSE 84; RESP 18; TEMP 98.6
[2025-09-08 07:00] VITALS: BP 122/64; PULSE 85; RESP 20; TEMP 98.5
--- NOTE | 2025-09-08 07:02 | EKG ---
[facility] Test Date: 2025-09-06 Test Time: 13:09:02 Pat Name: SAMIR ABDULLAHI Department: [facility] Room: 201 1 Gender: M Night Manager: [id number] [phone] [id number] Requested By: PARVIZ SMITH Order Number: [id number] Reading MD: Tata Manrique Measurements Intervals [place] Rate: 93 P: 61 ME: 269 QRS: -70 QRSD: 130 T: 84 QT: 430 QTc: 531 Interpretive Statements Sinus rhythm Atrial premature complex Prolonged ME interval Nonspecific IVCD with LAD ST elevation secondary to IVCD ST elevation, consider inferior injury Compared to ECG 09/06/2025 11:54:52 Intraventricular conduction delay now present ST (T wave) deviation now present Myocardial infarct finding now present Left bundle-branch block no longer present Electronically Signed On 09-08-2025 10:07:27 [employer] by Tata Manrique Please click the below link to view image of tracing.
--- NOTE | 2025-09-08 07:43 | PN ---
[facility] CARDIOLOGY PROGRESS NOTE Date Patient Seen: Sep 08, 2025 Time of Visit: 07:36 Problem List: 1. Adult failure to thrive 2. Deconditioned state 3. Malnourished 4. ACS-NSTEMI 5. Intractable back and right lower extremity pain 6. Hyponatremia 7. Paroxysmal atrial fibrillation, on anticoagulation Interval History: Pt is evaluated in the hospital room again today. Family has opted for conservative management. No acute events overnight. Hospice consideration. Physical Examination: GENERAL: [No acute distress, frail HEAD: [Normal with no signs of head trauma.] EYES: [PERRLA, EOMI, conjunctiva and sclera normal.] ENT: [Hearing grossly intact, normal oropharynx.] NECK: [Supple without JVD. There is no tenderness, lymphadenopathy, or masses. No thyromegaly. Normal carotid upstrokes without bruits.] LUNGS: Diminished breath sounds bilaterally. There are basilar rales noted. No wheezes, or rhonchi.] HEART: Regular rate and rhythm. Normal S1 and S2 without murmurs, gallop or rub.] VASC: [Peripheral pulses +2 bilaterally.] ABD: [Bowel sounds normal, soft, nontender, no masses, no organomegaly. No audible bruits.] : [Not examined] LYMPH: [No lymphadenopathy noted.] EXT: [No clubbing, cyanosis or edema.] SKIN: [No rashes or lesions noted.] NEURO: [Awake, alert, and oriented x3. No focal sensory or strength deficits noted.] Laboratory: [ ] Hematology Labs: Test 09/07/25 04:12 Range/Units White Blood Count 9.7 4.8-10.8 K/uL Red Blood Count 3.60 L 4.50-6.20 MIL/uL Hemoglobin 10.1 L 14.0-18.0 g/dL Hematocrit 30.0 L 42-54 % Mean Corpuscular Volume 83.3 79-99 fL Mean Corpuscular Hemoglobin 28.1 27.0-33.0 pg Mean Corpuscular Hemoglobin Concent 33.7 32.0-36.0 g/dL Red Cell Distribution Width 14.1 11.0-15.5 % Platelet Count 257 130-400 K/uL Mean Platelet Volume 11.2 H 7.5-10.5 fL Nucleated Red Blood Cells 0.0 0.0-0.19 % Chemistry Labs: Test 09/07/25 04:12 09/06/25 19:34 Range/Units Sodium Level 130 L 136-145 mmol/L Potassium Level 3.5 3.5-5.1 mmol/L Chloride Level 95 L 101-111 mmol/L Carbon Dioxide Level 25 21-32 mmol/L Blood Urea Nitrogen 32 H 7-18 mg/dL Creatinine 0.8 0.5-1.3 mg/dL Glomerular Filtration Rate Calc 85 >90 mL/min Random Glucose 122 H 70-105 mg/dL Total Calcium 8.4 L 8.5-10.1 mg/dL Thyroid Stimulating Hormone (TSH) 0.74 0.36-3.74 uIU/mL Troponin I High Sensitivity 02518 *H 4-75 ng/L Coagulation Labs: Test 09/08/25 03:55 Range/Units Activated Partial Thromboplast Time 73.8 #H 26.3-35.5 SEC Diagnostics / Radiology: [Copy/Paste Echos/Imaging Report here] Impression and Plan: GDMT for conservative management Family considering hospice Cardiology will sign off, if further assistance needed, please reconsult Thank you for the opportunity to participate in pt's care STEVE WHITAKER AGACN Sep 08, 2025 07:43
[2025-09-08] MEDS: SPIRONOLACTONE 25 MG TAB PO SCH (09:11)
--- NOTE | 2025-09-08 10:00 | NUR ---
DCP:HOME WITH [facility] [phone] ZOEY met with pt and son Juanito and son's , educated on hospice Pt and family agreeable to hospice at home. Son signed consent for [facility] hospice. Son to transport pt home in private car. Zoey spoke to Marilee at [facility] and she is on her way to meet with pt and family, DC pending acceptance and DME delivery.
[2025-09-08 11:00] VITALS: BP 106/53; PULSE 73; RESP 20; TEMP 98
--- NOTE | 2025-09-08 11:33 | NUR ---
DCP:HOME WITH [facility] [phone] Per Marilee at [facility], p is ready for discharge and she informed nurse Sara of this and # to call report to. Zenobia FLORES made aware. Pt to transport by private car
[2025-09-08 13:41] VITALS: O2SAT 97
--- NOTE | 2025-09-08 15:32 | DS ---
[facility] DISCHARGE SUMMARY Date Patient Seen: Sep 08, 2025 Time of Visit: 15:31 Supervising Physician: Dr.Ricardo Nunez Primary Care Physician: Dr. Scott Lu Outpatient Specialists: Pain specialist Inpatient Consults: Dr. 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 Dent Adult Failure to Thrive Unintentional weight loss BPH Hypertension Paroxysmal atrial fibrillation, on anticoagulation HPI (per admitting provider): Patient is an 89-year-old male with a past medical history significant for Hypertension, multilevel lumbar spondylosis with intractable pain, adult failure to thrive secondary to anorexia associated with the patient's intractable pain. He is being admitted today for acute [place] [id number]. Patient endorses chest pain on admission that started this morning. He has been evaluated by Cardiology today in the patient's current state secondary to his anorexia and failure to thrive he is not a good candidate for left heart catheterization. He has been given a loading dose of Plavix 300 at this time, per nursing staff cardiology recommendations are to continue with conservative management at this time. Once patient's NSTEMI is properly addressed we will discuss options regarding the patient's anorexia and failure to thrive however I have advised the son at bedside with the patient's prognosis is very poor. Patient with recent admission for failure to thrive, discharged several days ago and son reports that the patient has not been eating at home except for a few sips of supplemental nutritional shakes. Patient will be admitted to [facility] for tele monitoring and administration of heparin drip. We will initiate pain management with the patient's lumbar spondylosis. Recommendations for hospice will be discussed on this admission. HOSPITAL COURSE: Patient was admitted due to chest pain and was found to have acute NSTEMI. He was started on treatment and cardiology was consulted. Patient not a candidate for intervention due to anorexia and malnourishment, both patient and son opted for conservative management. Patient remained with poor appetite and stated he was ready to go home with his who had 10 years ago. Today, patient is awake and alert x 3. Currently on room air. Complains of pain to back. Patient and son have opted for hospice at home. Hospice supplies have been delivered. Patient stable for discharge home with hospice. New Medications: Aspirin (Aspirin 81MG Chew Tab) 81 Mg Tab.chew 81 MG PO DAILY, #30 TAB.CHEW Atorvastatin Calcium (Lipitor) 40 Mg Tablet 40 MG PO HS, #30 TAB Furosemide (Lasix 20Mg Tab) 20 Mg Tablet 20 MG PO DAILY, #30 TAB Metoprolol Succinate (Toprol Xl) 25 Mg Tab.er.24h 12.5 MG PO DAILY, #30 TAB Continued Medications: Acetaminophen with Codeine (Acetaminophen-Cod #3 Tablet) 300 Mg-30 Mg Tablet 1 TAB PO Q6HPRN PRN for pain for 5 Days, #28 TAB 0 Refills Diazepam (Diazepam) 10 Mg Tablet 10 MG PO as needed, TAB Docusate Sodium (Colace) 100 Mg Capsule 1 CAP PO BID for 30 Days, #60 CAP 0 Refills Tamsulosin HCl (Flomax) 0.4 Mg Cap.er.24h 0.4 MG PO DAILY, CAPSULE. PHYSICAL EXAM: GENERAL: alert, weak, awake oriented x 3 HEENT: EOMI, Sclera non icteric, moist mucosa NECK: Supple, no JVD, trachea midline LUNGS: Clear breath sounds bilaterally. No wheezes HEART: Regular rate and rhythm. Normal S1 and S2, without murmurs ABD: Abdomen soft, nontender. Bowel sounds present EXT: No clubbing cyanosis or edema NEURO: AAOX3, follows commands FOLLOW-UP: Follow-up with PCP in 2-3 days RECOMMENDATIONS: See Discharge Instructions This case was seen and discussed with my supervising physician. More than 30 minutes spent on discharge process, including evaluation of the patient, discussion with nursing staff, medication reconciliation and follow-up appointments JERARDO MARTINEZ Sep 08, 2025 15:32
--- NOTE | 2025-09-08 15:40 | NUR ---
SPEECH NOTE: ACCORDION MAKER coordinated with nurse Ruiz. As per nurse, patient tolerating diet recommendations of minced and moist solids, thin liquids with no overt s/s of aspiration. Please re-consult speech therapy services if any s/s of aspiration arise. All questions answered. Addendum: 09/08/[address] [facility] Amended: Links added.
== END 2025-09-08 16:45 | disposition hospice, home (50) | DRG 280 ==
LOC: EDH 11:17 → EDHIP 13:36 → 2AH 15:44
PROVIDERS: ADMIT Internal Medicine Pulmonary Disease; ATTEND Internal Medicine Pulmonary Disease
DX: I21.4 Non-ST elevation (NSTEMI) myocardial infarction (principal); I50.43 Acute on chronic combined systolic (congestive) and diastolic (congestive) heart failure; E87.1 Hypo-osmolality and hyponatremia; Z66 Do not resuscitate; I11.0 Hypertensive heart disease with heart failure; E86.0 Dehydration; R62.7 Adult failure to thrive; E11.9 Type 2 diabetes mellitus without complications; I48.0 Paroxysmal atrial fibrillation; G89.29 Other chronic pain; J40 Bronchitis, not specified as acute or chronic; Z79.01 Long term (current) use of anticoagulants; J98.11 Atelectasis; M47.816 Spondylosis without myelopathy or radiculopathy, lumbar region; I25.10 Atherosclerotic heart disease of native coronary artery without angina pectoris; N40.0 Benign prostatic hyperplasia without lower urinary tract symptoms; Z79.899 Other long term (current) drug therapy
CPT/HCPCS: 36415; 71045; 80048; 80053; 82550; 83690; 83735; 83880; 84443; 84484; 85025; 85027; 85610; 85730; 87635; 87804; 92610; 93005; 93306; 93356; 96374; 99285; G0378; J1644; J1308